=== PATIENT | female | born 1980 ===

== ENCOUNTER 2020-11-03 09:22 | Outpatient (REF) | payer BC, SELFPAY ==
[2020-11-03 11:25] LABS: MANUAL DIFF FLAG NO
[2020-11-03 11:54] LABS: Basophils Percent Auto 0.3 % (0-2); Eosinophils Absolute Auto 0.1 X10*3/uL (0.0-0.4); Eosinophils Percent Auto 1.1 % (0-4); Hematocrit 39.2 % (37-47); Hemoglobin 13.4 g/dl (12.0-16.0); Imm Gran Abs Auto 0.03 X10*3/uL (0.00-0.03); Imm Gran Pct Auto 0.4 % (0.0-0.4); Lymphocytes Absolute Auto 1.7 X10*3/uL (1.2-4.9); Lymphocytes Percent Auto 23.8 % (20-40); Mean Corpuscular HGB Conc 34.2 g/dl (31.0-35.0); Mean Corpuscular Hemoglobin 31.6 pg (27.0-33.0); Mean Corpuscular Volume 92.5 fL (80-98); Mean Platelet Volume 9.9 fL (9.4-12.3); Monocytes Absolute Auto 0.6 X10*3/uL (0.1-1.2); Monocytes Percent Auto 8.9 % (2-11); Neutrophils Absolute Auto 4.7 X10*3/uL (2.0-8.3); Neutrophils Percent Auto 65.5 % (45-73); Platelet Count 449 X10*3/uL (160-400); Red Blood Count 4.24 X10*6/uL (4.20-5.50); Red Cell Distribution Width 12.1 % (11.0-16.0); White Blood Count 7.2 X10*3/uL (4.8-10.8)
[2020-11-03 12:27] LABS: Thyroid Stimulating Hormone 1.41 uIU/mL (0.32-4.0); Vitamin D 25-OH Total 34.3 ng/mL (>30)
[2020-11-03 12:36] LABS: Alanine Aminotransferase 33 U/L (0-31); Albumin Level 4.7 g/dL (3.5-5.0); Alkaline Phosphatase 88 U/L (39-117); Anion Gap 20 (12-20); Aspartate Amino Transferase 27 U/L (5-31); Bilirubin Total 0.5 mg/dL (0.0-1.0); Blood Urea Nitrogen 11 mg/dL (9-16); Calcium 9.3 mg/dL (8.4-10.2); Carbon Dioxide 25 mmol/L (22-29); Chloride 97 mmol/L (96-108); Cholesterol 162 mg/dL; Estimated Glomerular Filt Rate > 60; Glucose Fasting 104 mg/dL (60-99); HDL Cholesterol 45 mg/dL; LDL Cholesterol Calculated 93 mg/dl; Potassium 3.6 mmol/l (3.3-5.1); Sodium 138 mmol/L (135-145); Total Protein 8.2 g/dL (6.5-8.0); Triglycerides 123 mg/dL
== END 2020-11-03 09:23 | disposition home or self-care (01) ==
LOC: HO.HMGCLDS 09:22
PROVIDERS: PCP Internal Medicine; Visit Provider Internal Medicine
DX: E55.9 Vitamin D deficiency, unspecified (principal); E78.00 Pure hypercholesterolemia, unspecified
CPT/HCPCS: 36415; 80053; 80061; 82306; 84443; 85025

== ENCOUNTER 2021-04-04 07:42 | Outpatient (REF) | payer BC, SELFPAY ==
[2021-04-04 11:24] LABS: MANUAL DIFF FLAG NO
[2021-04-04 11:32] LABS: Basophils Percent Auto 0.4 % (0-2); Eosinophils Absolute Auto 0.1 X10*3/uL (0.0-0.4); Eosinophils Percent Auto 1.5 % (0-4); Hematocrit 37.8 % (37-47); Hemoglobin 12.3 g/dl (12.0-16.0); Imm Gran Abs Auto 0.02 X10*3/uL (0.00-0.03); Imm Gran Pct Auto 0.3 % (0.0-0.4); Lymphocytes Absolute Auto 1.6 X10*3/uL (1.2-4.9); Lymphocytes Percent Auto 21.8 % (20-40); Mean Corpuscular HGB Conc 32.5 g/dl (31.0-35.0); Mean Corpuscular Hemoglobin 31.4 pg (27.0-33.0); Mean Corpuscular Volume 96.4 fL (80-98); Mean Platelet Volume 9.6 fL (9.4-12.3); Monocytes Absolute Auto 0.6 X10*3/uL (0.1-1.2); Monocytes Percent Auto 7.7 % (2-11); Neutrophils Absolute Auto 5.2 X10*3/uL (2.0-8.3); Neutrophils Percent Auto 68.3 % (45-73); Platelet Count 415 X10*3/uL (160-400); Red Blood Count 3.92 X10*6/uL (4.20-5.50); Red Cell Distribution Width 12.9 % (11.0-16.0); White Blood Count 7.5 X10*3/uL (4.8-10.8)
[2021-04-04 11:56] LABS: Alanine Aminotransferase 16 U/L (0-31); Albumin Level 4.4 g/dL (3.5-5.0); Alkaline Phosphatase 83 U/L (39-117); Anion Gap 13 (12-20); Aspartate Amino Transferase 15 U/L (5-31); Bilirubin Total 0.5 mg/dL (0.0-1.0); Blood Urea Nitrogen 14 mg/dL (9-16); Calcium 9.2 mg/dL (8.4-10.2); Carbon Dioxide 28 mmol/L (22-29); Chloride 102 mmol/L (96-108); Cholesterol 203 mg/dL; Estimated Glomerular Filt Rate > 60; Glucose Fasting 111 mg/dL (60-99); HDL Cholesterol 49 mg/dL; LDL Cholesterol Calculated 119 mg/dl; Potassium 4.5 mmol/L (3.3-5.1); Sodium 138 mmol/L (135-145); Total Protein 7.6 g/dL (6.5-8.0); Triglycerides 175 mg/dL
[2021-04-04 12:20] LABS: Thyroid Stimulating Hormone 2.37 uIU/mL (0.32-4.0); Vitamin D 25-OH Total 33.2 ng/mL (>30)
== END 2021-04-04 07:43 | disposition home or self-care (01) ==
LOC: HO.HMGCLDS 07:42
PROVIDERS: PCP Internal Medicine; Visit Provider Internal Medicine
DX: F41.9 Anxiety disorder, unspecified (principal); I87.2 Venous insufficiency (chronic) (peripheral); E55.9 Vitamin D deficiency, unspecified; E78.00 Pure hypercholesterolemia, unspecified; E66.01 Morbid (severe) obesity due to excess calories
CPT/HCPCS: 36415; 80053; 80061; 82306; 84443; 85025

== ENCOUNTER 2022-02-05 07:54 | Outpatient (REF) | payer BC, SELFPAY ==
[2022-02-05 11:21] LABS: MANUAL DIFF FLAG NO
[2022-02-05 11:51] LABS: Basophils Percent Auto 0.5 % (0-2); Eosinophils Absolute Auto 0.2 X10*3/uL (0.0-0.4); Eosinophils Percent Auto 2.4 % (0-4); Hemoglobin 12.1 g/dl (12.0-16.0); Imm Gran Abs Auto 0.03 X10*3/uL (0.00-0.03); Imm Gran Pct Auto 0.3 % (0.0-0.4); Lymphocytes Absolute Auto 1.5 X10*3/uL (1.2-4.9); Lymphocytes Percent Auto 16.5 % (20-40); Mean Corpuscular HGB Conc 32.7 g/dl (31.0-35.0); Mean Corpuscular Hemoglobin 31.2 pg (27.0-33.0); Mean Corpuscular Volume 95.4 fL (80.0-98.0); Monocytes Absolute Auto 0.7 X10*3/uL (0.1-1.2); Monocytes Percent Auto 7.6 % (2-11); Neutrophils Absolute Auto 6.4 x10*3/uL (2.0-8.3); Neutrophils Percent Auto 72.7 % (45-73); Platelet Count 424 X10*3/uL (160-400); Red Blood Count 3.88 X10*6/uL (4.20-5.50); Red Cell Distribution Width 12.9 % (11.0-16.0); White Blood Count 8.8 X10*3/uL (4.8-10.8)
[2022-02-05 11:58] LABS: Alanine Aminotransferase 28 U/L (0-31); Alkaline Phosphatase 69 U/L (39-117); Anion Gap 15 (12-20); Aspartate Amino Transferase 23 U/L (5-31); Bilirubin Total 0.5 mg/dL (0.0-1.0); Blood Urea Nitrogen 11 mg/dL (9-16); Calcium 9.5 mg/dL (8.4-10.2); Carbon Dioxide 28 mmol/L (22-29); Chloride 99 mmol/L (96-108); Cholesterol 189 mg/dL; Estimated Glomerular Filt Rate > 60; Glucose Fasting 132 mg/dL (60-99); HDL Cholesterol 40 mg/dL; LDL Cholesterol Calculated 119 mg/dl; Potassium 3.8 mmol/L (3.3-5.1); Sodium 138 mmol/L (135-145); Total Protein 7.3 g/dL (6.5-8.0); Triglycerides 154 mg/dL
[2022-02-05 12:20] LABS: Thyroid Stimulating Hormone 2.48 uIU/mL (0.32-4.0); Vitamin D 25-OH Total 31.8 ng/mL (>30)
== END 2022-02-05 07:55 | disposition home or self-care (01) ==
LOC: HO.HMGCLDS 07:54
PROVIDERS: Visit Provider Internal Medicine
DX: Z00.00 Encounter for general adult medical examination without abnormal findings (principal); E78.00 Pure hypercholesterolemia, unspecified; E55.9 Vitamin D deficiency, unspecified
CPT/HCPCS: 36415; 80053; 80061; 82306; 84443; 85025

== ENCOUNTER → 2022-03-25 10:23 | Outpatient (BNVA) | payer BC, SELFPAY | PROVIDERS: PCP Internal Medicine; Visit Provider Internal Medicine | DX: G47.33 Obstructive sleep apnea (adult) (pediatric) (principal) ==

== ENCOUNTER 2022-04-03 07:49 | Outpatient (REF) | payer BC, SELFPAY ==
[2022-04-03 11:17] LABS: Estimated Average Glucose 123 mg/dL; Hemoglobin A1c % 5.9 %
== END 2022-04-03 07:50 | disposition home or self-care (01) ==
LOC: HO.HMGCLDS 07:49
PROVIDERS: Visit Provider Internal Medicine
DX: Z00.00 Encounter for general adult medical examination without abnormal findings (principal); E66.01 Morbid (severe) obesity due to excess calories
CPT/HCPCS: 36415; 83036

== ENCOUNTER → 2022-04-16 14:57 | Outpatient (REF) | payer BC, SELFPAY | LOC: HO.SL 14:57 | PROVIDERS: PCP Internal Medicine; Visit Provider Internal Medicine | DX: G47.33 Obstructive sleep apnea (adult) (pediatric) (principal); E66.01 Morbid (severe) obesity due to excess calories; R06.83 Snoring; R40.0 Somnolence | CPT/HCPCS: 95806 ==

== ENCOUNTER → 2022-05-20 10:26 | Outpatient (BNVA) | payer OTHER, SELFPAY | PROVIDERS: PCP Internal Medicine; Visit Provider Internal Medicine | DX: G47.33 Obstructive sleep apnea (adult) (pediatric) (principal); E66.01 Morbid (severe) obesity due to excess calories; Z68.42 Body mass index [BMI] 45.0-49.9, adult | CPT/HCPCS: 99212 ==

== ENCOUNTER → 2023-03-26 13:37 | Outpatient (BNVA) | payer OTHER, SELFPAY | PROVIDERS: PCP Internal Medicine; Visit Provider Internal Medicine ==

== ENCOUNTER 2023-04-16 10:06 | Outpatient (AMB) | payer OTHER, SELFPAY ==
--- NOTE | 2023-04-16 10:15 | MHC.PC.OV ---
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 Intake Note: Pt is here today as a New Patient to [facility] care/ sleep apnea Allergies No Known Allergies Allergy (Verified 07/14/23 23:09) Medication List - Last Reconciled 07/14/23 by Shauna Murphy MD atorvastatin 10 mg PO DAILY betamethasone, augmented 0.05 % 1 appl topical DAILY calcium cit mal-vit D2-mag ox 200-200-25 mg-unit-mg tabs PO cholecalciferol (vitamin D3) 50 mcg PO DAILY hydrochlorothiazide 50 mg PO DAILY multivitamin 1 tab PO DAILY sertraline 50 mg PO DAILY Tobacco use date assessed: 04/16/23 Dental Screening Dental Screen Date: 04/16/23 Did you have a dental visit in the last 12 months?: Yes Did you have a dental problem in the last 6 months where you did not have access to dental care?: No Was dental information given to patient?: Patient has dentist HPI DRUG SAFETY ASSOCIATE/ Sleep apena/meds HPI Details 43-year-old lady, new to practice, here to establish care with a new PCP. She has history of obstructive sleep apnea. She has hypertension with blood pressure currently controlled on hydrochlorothiazide. Takes atorvastatin for dyslipidemia. Sees Dr. Murphy for her scalp psoriasis and diagnosed to have granuloma annulare Followed by Dr. Kothari for her obstructive sleep apnea, compliant with CPAP Currently on sertraline for her generalized anxiety disorder, which has been helping. [facility] Medical History (Updated 07/14/23 @ 23:13 by Shauna Murphy MD) Colon cancer screening Morbid obesity Gestational diabetes Granuloma annulare Scalp psoriasis Rosacea History of vitamin D deficiency Generalized anxiety disorder Hypercholesterolemia Obstructive sleep apnea YOHAN (obstructive sleep apnea) Somnolence, daytime Snoring Morbid obesity Surgical History Previous section Family History Sister Substance use disorder Bipolar disorder Father Alcoholism Bipolar disorder Mother Mental health disorder Hodgkins lymphoma Alcoholism Sister No problems noted. Maternal Grandmother CAD (coronary artery disease) Social History Housing: House Patient Tobacco Use Status: Former Tobacco user e-Cigarette/Vaping Use: Never Used service: No Current occupational status: employed Cognitive needs: No Hearing needs: No Vision needs: Yes Female Reproductive History Menstrual Date of Mammogram: 02/12/23 Other: She sees [facility] and [facility] for her routine Pap and pelvic exam and orders her screening mammogram Questionnaire PHQ-9 Over the last 2 weeks, how often have you been bothered by any of the following problems? 1. Little interest or pleasure in doing things: not at all 2. Feeling down, depressed, or hopeless: not at all 3. Trouble falling or staying asleep, or sleeping too much: not at all 4. Feeling tired or having little energy: not at all 5. Poor appetite or overeating: not at all 6. Feeling bad about yourself - or that you are a failure or have let yourself or your family down: not at all 7. Trouble concentrating on things, such as reading the newspaper or watching television: not at all 8. Moving or speaking so slowly that other people could have noticed. Or the opposite - being so fidgety or restless that you have been moving around a lot more than usual: not at all 9. Thoughts that you would be better off or of hurting yourself in some way: not at all Total score: 0 Depression Screening Interpretation: Negative 71786 - PHQ-9 Billing: Yes Source: Developed by Drs. Pj Moreno, Samantha Morris, Deon Fulton and colleagues, with an educational indira from [employer]. Thrive Questionnaire Date Thrive assessed: 04/16/23 I am a: Patient What is your living situation today?: I have a steady place to live Within the past 12 months, did the food you bought not last and you didn't have the money to get more?: Never true Within the past 12 months, did you worry whether your food would run out before you got money to buy more?: Never true Do you have trouble paying for medicines?: No Do you have trouble getting transportation to medical appointments?: No Do you have trouble paying your heating and electricity bill?: No Do you have trouble taking care of your child, family member or friend?: No Do you have trouble with day-to-day activities such as bathing, preparing meals, shopping, managing finances, etc.?: No Are you currently unemployed and looking for a job?: No Are you interested in more education?: Yes AUDIT C Alcohol Use Questionnaire (AUDIT-C) 1. How often do you have a drink containing alcohol?: Monthly or less 2. How many drinks containing alcohol do you have on a typical day when you are drinking?: 1 or 2 3. How often do you have six or more drinks on one occasion?: Never Total Score: 1 SUSAN-7 AMB Questionnaire SUSAN-7 Date SUSAN - 7 assessed: 04/16/23 Feeling nervous, anxious, or on edge: 1 = Several days Not being able to stop or control worryin = Not at all Worrying too much about different things: 1 = Several days Trouble relaxin = Several days Being so restless that it is hard to sit still: 0 = Not at all Becoming easily annoyed or irritable: 1 = Several days Feeling afraid as if something awful might happen: 0 = Not at all Total SUSAN-7 score (0-4 normal; 5-9 mild; 10-14 moderate; 15-21 severe): 4 Source: Developed by Drs. Pj Moreno, Samantha Morris, Deon Fulton and colleagues, with an educational indira from [employer]. SUSAN-7 Assessment Billing SUSAN-7 Assessment Tool: SUSAN-7 Assessment 33252 Review of Systems Const Denies body aches, Denies fatigue, Denies fever(s), Denies headache(s), Denies weakness and Reports weight loss (Lost approximately 40 lb since starting CPAP per patient) Eyes Details: goes to [facility] for routine eye exam Denies change in vision, Denies eye discharge and Denies itchy eyes ENT Denies dizziness, Denies headache(s), Denies nasal congestion, Denies nasal discharge and Denies sore throat Card Denies chest pain, Denies lightheadedness, Denies palpitations and Denies dyspnea Resp Denies chest congestion, Denies cough, Denies dyspnea and Denies wheezing GI Denies abdominal pain, Denies change in bowel habits and Denies heartburn Denies hematuria, Denies urinary frequency, Denies dysuria and Denies urinary urgency Musc Reports no additional complaints Skin/Breast Denies breast pain, Denies breast mass, Denies lesions and Denies rash Neuro Denies dizziness, Denies headache(s) and Denies weakness Psych Details: Stable and controlled on sertraline Endo Denies fatigue, Denies polydipsia, Denies polyuria and Denies palpitations Oscar/Lymph Denies easy bruising Aller/Immun Denies itchy eyes, Denies seasonal rhinorrhea and Denies wheezing Physical exam (Primary Care) Vital Signs: Last Vital Signs Pulse 60 04/16/23 10:17 BP 102/64 04/16/23 10:17 Pulse Ox 95 04/16/23 10:17 Oxygen Delivery Method Room Air 04/16/23 10:17 BMI result Body Mass Index 43.5 BMI Assessment/Plan discussion: High BMI High, discussed plan: lifestyle, weight reduction, dietary and physical activity Tobacco/Smoking Status: Tobacco use Status Tobacco use date assessed 04/16/23 04/16/23 10:24 Patient Tobacco Use Status Former Tobacco user 04/16/23 10:24 e-Cigarette/Vaping Use Never Used 04/16/23 10:24 PHQ-9: PHQ-9 Score PHQ-9: Total score 0 04/17/23 02:56 Depression Screening Interpretation: Negative Thrive Assessment: Date of Thrive Assessment Date Thrive assessed 04/16/23 04/16/23 11:23 Const General: no acute distress and alert Orientation/consciousness: patient oriented x3 HENMT Head: Yes normocephalic and Yes atraumatic Ears: external ears normal, TM's normal bilaterally and EAC's normal General nose exam: Normal external nose present Face and sinus: Yes face symmetric Mouth: Normal oral and palatal mucosa present, oropharynx normal and moist mucous membranes Eyes General: appearance normal, both eyes and all related structures Conjunctivae: conjunctivae normal Sclerae: sclerae normal Pupils: Equal, round and reactive pupils present Neck Neck: Yes full ROM, Yes no lymphadenopathy and Yes supple Thyroid: Thyroid normal Resp Effort & Inspection: normal respiratory effort and able to speak in complete sentences Auscultation: clear to auscultation bilaterally Cardio Rate: regular rate Rhythm: regular rhythm Heart sounds: S1 normal heart sound present and S2 normal heart sound present GI Inspection: Yes Abdominal panniculus present, Yes obesity and Yes other (Palpable mass nontender on midline ) Palpation (GI): Soft to palpation, nontender, no guarding and Hernia present (? Umbilical hernia present) Auscultation: normal bowel sounds General: Yes no CVA tenderness Back/Spine/Pelvis Back: no CVA tenderness and No back tenderness Skin General skin exam: no rashes or lesions noted Neuro General: patient oriented x3, gait normal, moves all extremities, Normal light touch and pain sensation, no focal motor deficits and CN's II-XI intact bilaterally Cranial nerves: Yes Equal, round and reactive pupils present Cognition (Neuro): normal cognition Gait exam (Neuro): Normal gait present Motor exam (neuro): 5/5 motor strength present throughout Extrem General: Yes normal to inspection, Yes full ROM, Yes no joint enlargement, Yes no pedal edema and Yes normal gait Psych Appearance: grossly normal and well kempt Mental Status: mental status grossly normal Speech and movement: Normal speech and movement present Affect: normal affect Attitude: cooperative Thought process: Normal thought process present Thought content: Normal thought content present Insight: Good insight present (Psych) Judgement: Good judgement present (Psych) Assessment and Plan Assessment & Plan (1) Colon cancer screening: Code(s): Z12.11 - Encounter for screening for malignant neoplasm of colon Plan: Referred to GI Clinic for her screening colonoscopy (2) Abdominal wall mass: Code(s): R22.2 - Localized swelling, mass and lump, trunk Plan: Ordered abdominal ultrasound . (3) Morbid obesity: Code(s): E66.01 - Morbid (severe) obesity due to excess calories Plan: Discussed need to increase activity and weight loss. Recommended focusing on improving your health instead of dieting. : Eat Mediterranean diet, limit foods high in fat, sugar, and calories, eat slowly, pay attention to portion sizes, plan your meals ahead of time, start regular physical activity 150 minutes of moderate intensity exercise or 90 minutes/week of vigorous exercise and increase water intake. Continue using CPAP (4) Generalized anxiety disorder: Code(s): F41.1 - Generalized anxiety disorder Plan: Stable controlled on sertraline 100 mg daily, has had therapy in the past, does not need to see one anymore, per patient. Patient states she is well-versed on ways to to relieve stress including : exercise or a massage, getting enough rest, Avoid alcohol, caffeine, nicotine, and illegal drugs which can increase your anxiety level and cause sleep problems. (5) Granuloma annulare: Comment: Seen by Dr. Murphy Code(s): L92.0 - Granuloma annulare Plan: Seen by Dr. Murphy (6) Obstructive sleep apnea: Comment: Sees Dr. Kothari Code(s): G47.33 - Obstructive sleep apnea (adult) (pediatric) Plan: Continue with using CPAP, followed by Dr. Kothari (7) Hypercholesterolemia: Code(s): E78.00 - Pure hypercholesterolemia, unspecified Plan: Requested copies of medical records and last labs from previous PCP, currently taking atorvastatin 10 mg daily. Reinforced importance of following a low-cholesterol diet and getting regular exercise Orders: Orders US abdomen complete 04/16/23 R22.2 - Localized swelling, mass and lump, trunk Referrals Gastroenterology Referral Z12.11 - Encounter for screening for malignant neoplasm of colon Coding Level of Care Code New Pt Level 4 (02932) Diagnoses Colon cancer screening Z12.11 Abdominal wall mass R22.2 Morbid obesity E66.01 Generalized anxiety disorder F41.1 Granuloma annulare L92.0 Obstructive sleep apnea G47.33 Hypercholesterolemia E78.00 Additional Codes SUSAN-7 Assessment Billing - SUSAN-7 Assessment Tool: SUSAN-7 Assessment 14002 ([id number])
[2023-04-16 10:17] VITALS: BP 102/64; PULSE 60; O2SAT 95; BMI 43.5
== END 2023-04-16 11:41 | disposition home or self-care (01) ==
LOC: HO.HMGC 10:06
PROVIDERS: PCP Internal Medicine; Visit Provider Internal Medicine
DX: E78.00 Pure hypercholesterolemia, unspecified (principal); E66.01 Morbid (severe) obesity due to excess calories; Z68.41 Body mass index [BMI] 40.0-44.9, adult; F41.1 Generalized anxiety disorder; L92.0 Granuloma annulare; G47.33 Obstructive sleep apnea (adult) (pediatric); R22.2 Localized swelling, mass and lump, trunk
CPT/HCPCS: 99204

== ENCOUNTER 2023-05-07 13:02 | Outpatient (REF) | payer OTHER, SELFPAY ==
--- NOTE | ~2023-05-07 | US_ITS ---
EXAMINATION: US umbilical region, LIMITED/FOLLOW UP CLINICAL INFORMATION: Umbilical hernia without obstruction or gangrene COMPARISON: None available. TECHNIQUE: Ultrasound of umbilical area FINDINGS: Real-time ultrasound over the palpable area indicated by the patient in the paraumbilical region demonstrates a hernia with 3.6 cm neck. US/US pelvic limited IMPRESSION: Umbilical hernia is demonstrated with 3.6 cm neck.
== END 2023-05-07 13:03 | disposition home or self-care (01) ==
LOC: HO.HMGCX 13:02
PROVIDERS: PCP Internal Medicine; Visit Provider Internal Medicine
DX: K42.9 Umbilical hernia without obstruction or gangrene (principal)
CPT/HCPCS: 76857

== ENCOUNTER 2023-05-21 15:30 | Outpatient (AMB) | payer OTHER, SELFPAY ==
--- NOTE | 2023-05-21 15:33 | A.OFFVIS_ITS ---
Intake Vital Signs 05/21/23 15:34 Height 5 ft 2 in Weight 242 lb BMI 44.3 BP 106/52 L Blood Pressure Location Rt brachial Position Sitting Pulse 66 Intake Visit Reasons: umbilical hernia Intake Note: This patient presents for an assessment for umbilical hernia. Patient c/o; bulge, denies pain or discomfort, umbilical region. 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 Accompanied by: Other Relationship Allergies No Known Allergies Allergy (Verified 05/21/23 15:39) Medication List - Last Reconciled 05/21/23 by Berhane Huntley MD atorvastatin 10 mg PO DAILY atorvastatin 10 mg PO BEDTIME betamethasone, augmented 0.05 % 1 appl topical DAILY calcium cit mal-vit D2-mag ox 200-200-25 mg-unit-mg tabs PO calcium citrate 250 mg PO DAILY cholecalciferol (vitamin D3) 50 mcg PO DAILY cholecalciferol (vitamin D3) 50 mcg PO DAILY hydrochlorothiazide 50 mg PO DAILY hydrochlorothiazide 50 mg PO DAILY multivitamin 1 tab PO DAILY multivitamin (Daily Multi-Vitamin tablet) 1 tab PO DAILY sertraline 50 mg PO DAILY sertraline 50 mg PO DAILY HPI umbilical hernia HPI Details [age] year old female referred for an umbilical hernia. She has had this not mass on her umbilicus for over 14 years. She says that seems to be increasing in size. She describes discomfort with this. She denies any GI complaints. She also has morbid obesity and obstructive sleep apnea. She does state that she feels that her obesity is related to her hernia symptoms. She says that she started wearing a CPAP for YOHAN, she has lost some weight already. [facility] Medical History Morbid obesity YOHAN (obstructive sleep apnea) Snoring Somnolence, daytime Surgical History Previous section Family History Sister Substance use disorder Bipolar disorder Father Alcoholism Bipolar disorder Mother Mental health disorder Hodgkins lymphoma Alcoholism Sister No problems noted. Maternal Grandmother CAD (coronary artery disease) Social History Housing: House Patient Tobacco Use Status: Former Tobacco user e-Cigarette/Vaping Use: Never Used service: No Current occupational status: employed Cognitive needs: No Hearing needs: No Vision needs: Yes Review of Systems Const Denies chills and Denies fever(s) Card Denies chest pain, Denies dyspnea and Denies dyspnea on exertion Resp Details: Has sleep apnea, wears CPAP at night Denies cough, Denies dyspnea and Denies dyspnea on exertion GI Denies hematochezia and Denies change in bowel habits Denies hematuria Musc Denies back pain and Denies limited range of motion Neuro Denies focal weakness and Denies convulsions Psych Denies depression and Denies mood swings Physical Exam Vital Signs: Last Vital Signs Pulse 66 05/21/23 15:34 BP 106/52 L 05/21/23 15:34 BMI result Body Mass Index 44.3 Const Other: Morbidly obese General: comfortable and no acute distress Orientation/consciousness: patient oriented x3 Neck Neck: Yes no lymphadenopathy Resp Auscultation: clear to auscultation bilaterally Cardio Rhythm: regular rhythm GI Other: Umbilical hernia, mostly on the lower part of the umbilicus, vague margins and not well-defined, probably about 4 cm in size, but she does have a large pannus Palpation (GI): Soft to palpation, nontender and no guarding Neuro General: patient oriented x3 Assessment & Plan Assessment & Plan (1) Umbilical hernia: Code(s): K42.9 - Umbilical hernia without obstruction or gangrene Plan: I explained to the technique of repair of this umbilical hernia possible mesh. I reviewed the risks including but not limited to bleeding, infections, bowel injury, as well as benefits and alternatives. She has given consent. I also explained to her what expect postoperatively. She however had stated that she is interested in seeing weight before proceeding with any surgical intervention. She is interested in touching base with our weight management program. I will set her up for this I have ordered for a CT scan to further define her hernia and help planning for approach for eventual repair. She says she understands the plan well. I will talk to her after her CT scan. (2) Morbid obesity: Code(s): E66.01 - Morbid (severe) obesity due to excess calories Plan: She states that she wants to lose some weight prior to undergoing surgery for her hernia. She is interested in a weight loss program so I am going to assist her with this. Orders: Orders CT abdomen pelvis wo IV con 05/21/23 K42.9 - Umbilical hernia without obstruction or gangrene Coding Level of Care Code New Pt Level 3 (14057) Diagnoses Umbilical hernia K42.9 Morbid obesity E66.01
[2023-05-21 15:34] VITALS: BP 106/52; PULSE 66; BMI 44.3
== END 2023-05-21 16:02 | disposition home or self-care (01) ==
PROVIDERS: PCP Internal Medicine; Visit Provider Surgery
DX: K42.9 Umbilical hernia without obstruction or gangrene (principal); E66.01 Morbid (severe) obesity due to excess calories
CPT/HCPCS: 99203

== ENCOUNTER → 2023-05-21 15:30 | Outpatient (BNVA) | payer OTHER, SELFPAY | PROVIDERS: PCP Internal Medicine; Visit Provider Surgery ==

== ENCOUNTER 2023-06-19 10:59 | Outpatient (REF) | payer OTHER, SELFPAY ==
--- NOTE | ~2023-06-19 | CT_ITS ---
EXAMINATION: CT ABDOMEN AND PELVIS WITHOUT CONTRAST CLINICAL INFORMATION: Umbilical hernia without obstruction or gangrene COMPARISON: Correlation is made with ultrasound dated 05/07/2023. TECHNIQUE: Multidetector volumetric imaging was performed from the superior aspect of the liver through the pubic symphysis. Sagittal and coronal reformatted images were obtained on the technologist's workstation. This CT examination was performed using dose optimization techniques as appropriate, variously including the following: *Automated exposure control *Adjustment of mA and/or kV according to patient size (this includes techniques or standardized protocols for targeted exams where dose is matched to indication/reason for exam; i.e. extremities or head) *Use of iterative reconstruction technique DLP: 712 mGy-cm FINDINGS: LUNG BASES: The visualized lung bases are unremarkable. LIVER, GALLBLADDER, AND BILIARY TREE: The liver is appears mildly enlarged. The liver is homogeneous without focal lesion.. No biliary ductal dilatation is present. The gallbladder is unremarkable with no evidence of radiopaque gallstones, gallbladder wall thickening, or obvious pericholecystic inflammatory changes. PANCREAS: Unremarkable. SPLEEN: Unremarkable. ADRENAL GLANDS: Unremarkable. KIDNEYS AND URETERS: The kidneys are normal in size, shape, and attenuation. No hydronephrosis, hydroureter, or calculi seen. No perinephric stranding. BLADDER: Unremarkable. GASTROINTESTINAL TRACT: The small and large bowel are unremarkable. The appendix is nonvisualized.. ABDOMINAL WALL: There is a fat-containing umbilical hernia extending inferior to the umbilicus. The abdominal wall defect measures 3.5 x 1.9 cm. The hernia sac measures 7.9 x 6.2 x 5.5 cm. There is no bowel in the hernia. No significant inflammatory change is seen. LYMPH NODES: Normal. VASCULAR: Unremarkable. PELVIC VISCERA: Unremarkable. OSSEOUS STRUCTURES: Unremarkable. CT/CT abdomen pelvis wo IV con IMPRESSION: There is a large fat-containing umbilical hernia as described, without associated inflammatory change. The liver is mildly enlarged, without evidence of focal lesion. Fleischner guidelines were followed.
== END 2023-06-19 11:00 | disposition home or self-care (01) ==
LOC: HO.CT 10:59
PROVIDERS: PCP Internal Medicine; Visit Provider Surgery
DX: K42.9 Umbilical hernia without obstruction or gangrene (principal)
CPT/HCPCS: 74176

== ENCOUNTER 2023-06-26 10:48 | Outpatient (AMB) | payer OTHER, SELFPAY ==
--- NOTE | 2023-06-26 11:01 | MHC.OFFVIS ---
Intake Vital Signs 06/26/23 11:08 Height 5 ft 2 in Weight 227 lb 4 oz BMI 41.6 BP 110/59 L Blood Pressure Location Rt brachial Position Sitting Pulse 58 Intake Visit Reasons: Ct-Scan follow-up Intake Note: This patient presents for a Ct-Scan follow-up. Patient c/o; reports no changes. [employer] Professional Required: No Accompanied by: Other Relationship Allergies No Known Allergies Allergy (Verified 06/26/23 11:07) HPI Ct-Scan follow-up HPI Details [age] year old female here for follow-up for her umbilical hernia. She has had this mass on her umbilicus for over 14 years. She says that seems to be increasing in size. She describes discomfort with this. She denies any GI complaints. She also has morbid obesity and obstructive sleep apnea. She does state that she feels that her obesity is related to her hernia symptoms. She says that she started wearing a CPAP for YOHAN, she has lost some weight already since September, as she has been on a weight watchers diet. I had sent her for CT scan and she is here to discuss the results as well. [facility] Medical History Morbid obesity YOHAN (obstructive sleep apnea) Snoring Somnolence, daytime Surgical History Previous section Family History Sister Substance use disorder Bipolar disorder Father Alcoholism Bipolar disorder Mother Mental health disorder Hodgkins lymphoma Alcoholism Sister No problems noted. Maternal Grandmother CAD (coronary artery disease) Social History Housing: House Patient Tobacco Use Status: Former Tobacco user e-Cigarette/Vaping Use: Never Used service: No Current occupational status: employed Cognitive needs: No Hearing needs: No Vision needs: Yes Review of Systems Const Denies chills and Denies fever(s) Card Denies chest pain, Denies dyspnea and Denies dyspnea on exertion Resp Denies cough, Denies dyspnea and Denies dyspnea on exertion GI Denies hematochezia and Denies change in bowel habits Denies hematuria Musc Denies back pain and Denies limited range of motion Neuro Denies focal weakness and Denies convulsions Psych Denies depression and Denies mood swings Physical Exam Vital Signs: Last Vital Signs Pulse 58 06/26/23 11:08 BP 110/59 L 06/26/23 11:08 BMI result Body Mass Index 41.6 Const Other: Obese General: comfortable and no acute distress Orientation/consciousness: patient oriented x3 Neck Neck: Yes no lymphadenopathy Resp Auscultation: clear to auscultation bilaterally Cardio Rhythm: regular rhythm GI Other: Umbilical hernia, palpable, about 5 cm, only partially reducible, nontender Palpation (GI): Soft to palpation, nontender and no guarding Neuro General: patient oriented x3 Assessment & Plan Assessment & Plan (1) Umbilical hernia: Code(s): K42.9 - Umbilical hernia without obstruction or gangrene Plan: I have reviewed her CAT scan and the fascial defect on the umbilicus about 4.4 cm. The hernia is fat containing. I had a long discussion with her again about the technique of umbilical hernia repair with mesh. I reviewed with her the risks including but not limited to bleeding, infections, here to bowel, recurrence, postop pain, as well as the benefits and alternatives I explained to her what to expect postoperatively She wants to proceed. She says that she is going to schedule for the surgery as she has had lost significant weight already and feels that she is ready for this. Coding Level of Care Code Est Pt Level 3 (70946) Diagnoses Umbilical hernia K42.9
[2023-06-26 11:08] VITALS: BP 110/59; PULSE 58; BMI 41.6
== END 2023-06-26 11:26 | disposition home or self-care (01) ==
PROVIDERS: PCP Internal Medicine; Visit Provider Surgery
DX: K42.9 Umbilical hernia without obstruction or gangrene (principal)
CPT/HCPCS: 99213

== ENCOUNTER → 2023-06-26 10:48 | Outpatient (BNVA) | payer OTHER, SELFPAY | PROVIDERS: PCP Internal Medicine; Visit Provider Surgery ==

== ENCOUNTER 2023-07-16 13:07 | Outpatient (AMB) | payer OTHER, SELFPAY ==
--- NOTE | 2023-07-16 13:07 | A.OFFVIS_ITS ---
Intake Vital Signs 07/16/23 13:08 Height 5 ft 2 in Weight 227 lb 1.218 oz BMI 41.5 BP 109/56 L Blood Pressure Location Lt brachial Position Sitting Pulse 65 Intake Visit Reasons: Colonoscopy Screening Intake Note: Racheal presents in the office as a colonoscopy screening. CC: She states that she is on a healing journey. She has been losing weight. Allergies No Known Allergies Allergy (Verified 07/16/23 13:10) HPI Colonoscopy Screening HPI Details 43 year old? female with past medical hi story of YOHAN, hypercholesteremia, umbilical hernia, anxiety, obesity is here today for pre colonoscopy screening.? Patient was sent to us by her PCP.? This is her first colonoscopy screening.? Patient denies any gastrointestinal symptoms in the past or at present.? Denies any personal or family history of gastrointestinal disease, colon polyps, or cancer.? Denies history of difficulty with sedation or anesthesia in the past.? History of sleep apnea using CPAP every night.? Patient has surgery planned to repair umbilical hernia in July. Denies any history of cardiac, renal, pulmonary, or hepatic disease.?? No history of infectious? diseases like hepatitis A, B, C, HIV or tuberculosis.? Patient is not on any anticoagulation therapy. [facility] Medical History Colon cancer screening Morbid obesity Gestational diabetes Granuloma annulare Scalp psoriasis Rosacea History of vitamin D deficiency Generalized anxiety disorder Hypercholesterolemia Obstructive sleep apnea YOHAN (obstructive sleep apnea) Somnolence, daytime Snoring Morbid obesity Surgical History Previous section Family History Sister Substance use disorder Bipolar disorder Father Alcoholism Bipolar disorder Mother Mental health disorder Hodgkins lymphoma Alcoholism Sister No problems noted. Maternal Grandmother CAD (coronary artery disease) Social History Housing: House Patient Tobacco Use Status: Former Tobacco user e-Cigarette/Vaping Use: Never Used service: No Current occupational status: employed Cognitive needs: No Hearing needs: No Vision needs: Yes Review of Systems Const Denies weight gain and Denies weight loss ENT Reports no additional complaints, Denies dysphagia and Denies odynophagia Card Reports no additional complaints Resp Reports no additional complaints GI Denies abdominal pain, Denies belching, Denies melena, Denies bloating, Denies change in bowel habits, Denies dysphagia, Denies excessive flatus, Denies dyspepsia, Denies heartburn, Denies diarrhea, Denies loose stools, Denies nausea, Denies odynophagia and Denies vomiting Reports no additional complaints Musc Reports no additional complaints Neuro Reports no additional complaints Psych Reports no additional complaints Endo Reports no additional complaints Physical Exam Vital Signs: Last Vital Signs Pulse 65 07/16/23 13:08 BP 109/56 L 07/16/23 13:08 BMI result Body Mass Index 41.5 Const General: healthy appearing, no acute distress and well developed Nutritional Appearance: obese Orientation/consciousness: patient oriented x3 HEENT Head: Yes normal to inspection, Yes normocephalic and Yes atraumatic Face and sinus: Yes normal facial exam Mouth: Normal oral and palatal mucosa present Throat: Yes posterior oropharynx normal, Yes tonsils normal and Yes uvula midline Eyes General: appearance normal, both eyes and all related structures Neck Neck: Yes normal visual inspection, Yes full ROM and Yes trachea midline Thyroid: Thyroid normal Resp Effort & Inspection: normal respiratory effort, able to speak in complete sentences, no tracheal deviation and symmetric chest movement Auscultation: clear to auscultation bilaterally Cardio Rate: regular rate Heart sounds: S1 normal heart sound present and S2 normal heart sound present GI Inspection: No distended and Yes obesity Palpation (GI): Soft to palpation, not firm, nontender and No hepatosplenomegaly present Auscultation: normal bowel sounds General: Yes no CVA tenderness Back/Spine/Pelvis Back: no CVA tenderness Skin General skin exam: elasticity normal, turgor normal and dry skin Neuro General: patient oriented x3 Psych Appearance: grossly normal Mental Status: mental status grossly normal Speech and movement: Normal speech and movement present Assessment & Plan Assessment & Plan (1) Colon cancer screening: Code(s): Z12.11 - Encounter for screening for malignant neoplasm of colon Plan: Patient denies any GI, cardiac or respiratory symptoms.? Denies any issues with anesthesia in the past.? History of CPAP now using CPAP every night. Patient has umbilical hernia repair surgery scheduled for July. Patient reports occasional hemorrhoids. Patient states that she is treating it with coconut oil and tea tree oil.? No history infectious diseases in the past or present.? Not on any anticoagulation therapy.? No family or personal history of colon cancer or polyps.? Patient denies melena, hematochezia, unintentional weight loss or ribbon like stools.? Discussed at length the pre-procedure,? prep, diet & medications as well as what to expect prior, during and after the procedure.?? Stressed the importance of good bowel prep. ?Recommended the use of Vaseline or Calmoseptine OTC & baby wipes with bowel movements to promote comfort.? ?Patient verbalizes understanding and agrees to plan of care.? She was given the opportunity to ask questions and all questions answered.? We will see her after the procedure.? Medications: New bisacodyl (Dulcolax (bisacodyl)) take 2 tabs at noon the day before your colonoscopy 10 mg (2 x 5 mg) PO ONCE 1 day 2 tabs 0RF Z12.11 - Encounter for screening for malignant neoplasm of colon polyethylene glycol 3350 (Miralax) As directed by gastroenterology department at [facility] 238 grams PO ONCE 238 grams 0RF Z12.11 - Encounter for screening for malignant neoplasm of colon Coding Level of Care Code New Pt Level 3 (52109) Diagnoses Colon cancer screening Z12.11 Time Spent (min) 40 Comment 30 minutes spent with patient and additional 10 minute spent reviewing her records
[2023-07-16 13:08] VITALS: BP 109/56; PULSE 65; BMI 41.5
== END 2023-07-16 13:51 | disposition home or self-care (01) ==
PROVIDERS: PCP Internal Medicine; Visit Provider Nurse Practitioner Family
DX: Z01.818 Encounter for other preprocedural examination (principal); Z12.11 Encounter for screening for malignant neoplasm of colon
CPT/HCPCS: S0285

== ENCOUNTER → 2023-07-16 13:07 | Outpatient (BNVA) | payer OTHER, SELFPAY | PROVIDERS: PCP Internal Medicine; Visit Provider Nurse Practitioner Family ==

== ENCOUNTER 2023-07-23 16:01 | Outpatient (AMB) | payer OTHER, SELFPAY ==
--- NOTE | 2023-07-23 16:01 | A.OFFVIS_ITS ---
Intake Intake Visit Reasons: re-discuss surgery Intake Note: This patient presents for an assessment to re-discuss hernia repair surgery. Patient c/o; reports no changes. Survey Field Technician Required: No Accompanied by: Self / Same As Patient Allergies No Known Allergies Allergy (Verified 07/23/23 16:05) Medication List - Last Reconciled 07/24/23 by Berhane Huntley MD atorvastatin 10 mg PO DAILY bisacodyl (Dulcolax (bisacodyl)) 10 mg (2 x 5 mg) PO ONCE 1 day calcium cit mal-vit D2-mag ox 200-200-25 mg-unit-mg tabs PO cholecalciferol (vitamin D3) 50 mcg PO DAILY hydrochlorothiazide 50 mg PO DAILY multivitamin 1 tab PO DAILY polyethylene glycol 3350 (Miralax) 238 grams PO ONCE sertraline 50 mg PO DAILY HPI re-discuss surgery HPI Details She is scheduled for repair of an umbilical hernia with mesh this month. She had called me as she wanted to review the option of proceeding with a laparoscopic repair. She denies any other complaints at this time. [facility] Medical History Colon cancer screening Morbid obesity Gestational diabetes Granuloma annulare Scalp psoriasis Rosacea History of vitamin D deficiency Generalized anxiety disorder Hypercholesterolemia Obstructive sleep apnea YOHAN (obstructive sleep apnea) Somnolence, daytime Snoring Morbid obesity Surgical History Previous section Family History Sister Substance use disorder Bipolar disorder Father Alcoholism Bipolar disorder Mother Mental health disorder Hodgkins lymphoma Alcoholism Sister No problems noted. Maternal Grandmother CAD (coronary artery disease) Social History Housing: House Patient Tobacco Use Status: Former Tobacco user e-Cigarette/Vaping Use: Never Used service: No Current occupational status: employed Cognitive needs: No Hearing needs: No Vision needs: Yes Review of Systems Const Denies chills and Denies fever(s) Card Denies chest pain, Denies dyspnea and Denies dyspnea on exertion Resp Denies cough, Denies dyspnea and Denies dyspnea on exertion GI Denies hematochezia and Denies change in bowel habits Denies hematuria Musc Denies back pain and Denies limited range of motion Neuro Denies focal weakness and Denies convulsions Psych Denies depression and Denies mood swings Physical Exam Const Other: Obese General: comfortable and no acute distress Resp Effort & Inspection: normal respiratory effort Cardio Rate: regular rate GI Other: Palpable hernia on the area of the umbilicus, reducible, nontender Palpation (GI): Soft to palpation, not firm, nontender and no guarding Assessment & Plan Assessment & Plan (1) Umbilical hernia: Code(s): K42.9 - Umbilical hernia without obstruction or gangrene Plan: I explained to her the technique of laparoscopic repair of this umbilical hernia. This will be done with mesh. She has had multiple abdominal surgeries including appendectomy and C-sections. I explained to her that laparoscopic repair with mesh might present with the higher turns rate because we will not be closing the fascia and the integrity of the repair will depend solely on the mesh itself. She understands as well that she may have adhesions surrounding the abdomen because of her previous appendectomy C-sections which will make the procedure a little more difficult. She understands advantage of smaller incisions and less pain with laparoscopic approach. She says she understands this option. She says she is deciding to go ahead with open repair. Coding Level of Care Code Est Pt Level 3 (52588) Diagnoses Umbilical hernia K42.9
== END 2023-07-23 16:29 | disposition home or self-care (01) ==
PROVIDERS: PCP Internal Medicine; Visit Provider Surgery
DX: K42.9 Umbilical hernia without obstruction or gangrene (principal)
CPT/HCPCS: 99213

== ENCOUNTER → 2023-07-23 16:01 | Outpatient (BNVA) | payer OTHER, SELFPAY | PROVIDERS: PCP Internal Medicine; Visit Provider Surgery ==

== ENCOUNTER 2023-08-08 07:31 | Day surgery (SDC) | payer OTHER, SELFPAY ==
[2023-08-06 14:35] VITALS: BMI 43.5
--- NOTE | 2023-08-07 11:17 | HO.ANESPROP2 ---
Documented by User: Anitha Leonard NP 08/07/23 11:18 HPI - Anesthesia Eval Consult details Narrative: 43yo F for Hernia Repair Umbilical with mesh PMFSH Active Problems Active Problems: All Active Problems (Updated 07/14/23 @ 23:13 by Shauna Murphy MD) Umbilical hernia (Acute) Obstructive sleep apnea (Acute) Hypercholesterolemia (Acute) Generalized anxiety disorder (Acute) Granuloma annulare (Acute) Gestational diabetes (Acute) Morbid obesity (Acute) Colon cancer screening (Acute) YOHAN (obstructive sleep apnea) (Acute) Morbid obesity (Acute) Past Medical History Medical History Colon cancer screening Morbid obesity Gestational diabetes Granuloma annulare Scalp psoriasis Rosacea History of vitamin D deficiency Generalized anxiety disorder Hypercholesterolemia Obstructive sleep apnea YOHAN (obstructive sleep apnea) Somnolence, daytime Snoring Morbid obesity Family History Family History Sister Substance use disorder Bipolar disorder Father Alcoholism Bipolar disorder Mother Mental health disorder Hodgkins lymphoma Alcoholism Sister No problems noted. Maternal Grandmother CAD (coronary artery disease) Surgical History Surgical History Previous section Social History Social History Housing: House Patient Tobacco Use Status: Former Tobacco user e-Cigarette/Vaping Use: Never Used Substance Use Frequency: Occasionally Have you been hit, kicked, punched, or otherwise hurt by someone within the past year? If so, by whom?: No Are you DNR?: No Advance Directives: No Advance Directives Information Provided: Yes Recently lost weight without trying: No Eating poorly because of decreased appetite: No Nutrition Risks: No Nutritional Risk Patient : No service: No Current occupational status: employed Cognitive needs: No Hearing needs: No Vision needs: Yes Meds Allergies Allergy/AdvReac Type Severity Reaction Status Date / Time No Known Allergies Allergy Verified 07/23/23 16:05 Home Medications Medication Instructions Recorded Confirmed Last Taken Type calcium citrate mal.-vit tab PO 04/16/23 07/24/23 Unknown History D2-magnesium ox 200 mg-200 unit-25 mg tablet cholecalciferol (vitamin D3) 50 50 mcg PO DAILY 04/16/23 07/24/23 Unknown History mcg (2,000 unit) capsule multivitamin 1 tab PO DAILY 04/16/23 07/24/23 Unknown History hydrochlorothiazide 50 mg tablet 50 mg PO DAILY 07/16/23 07/24/23 Unknown History Exam Exam Date and Time: August 07, 2023 1117 Height,Weight and Vital Signs: Height 5 ft 2 in Weight 107.955 kg Assessment and Plan Assessment Anesthesia Assessment: Chart Reviewed Documented by User: Elina Bae MD 08/08/23 08:44 PMFSH Past Medical History Medical History Colon cancer screening Morbid obesity Gestational diabetes Granuloma annulare Scalp psoriasis Rosacea History of vitamin D deficiency Generalized anxiety disorder Hypercholesterolemia Obstructive sleep apnea YOHAN (obstructive sleep apnea) Somnolence, daytime Snoring Morbid obesity Family History Family History Sister Substance use disorder Bipolar disorder Father Alcoholism Bipolar disorder Mother Mental health disorder Hodgkins lymphoma Alcoholism Sister No problems noted. Maternal Grandmother CAD (coronary artery disease) Family history of problems with anesthesia: No Surgical History Surgical History Previous section History of Problems with Anesthesia: No Social History Social History Housing: House Patient Tobacco Use Status: Former Tobacco user e-Cigarette/Vaping Use: Never Used Substance Use Frequency: Occasionally Have you been hit, kicked, punched, or otherwise hurt by someone within the past year? If so, by whom?: No Are you DNR?: No Advance Directives: No Advance Directives Information Provided: Yes Recently lost weight without trying: No Eating poorly because of decreased appetite: No Nutrition Risks: No Nutritional Risk Patient : No service: No Current occupational status: employed Cognitive needs: No Hearing needs: No Vision needs: Yes Meds Allergies Allergy/AdvReac Type Severity Reaction Status Date / Time No Known Allergies Allergy Verified 07/23/23 16:05 Home Medications Medication Instructions Recorded Confirmed Last Taken Type calcium citrate mal.-vit tab PO 04/16/23 07/24/23 Unknown History D2-magnesium ox 200 mg-200 unit-25 mg tablet cholecalciferol (vitamin D3) 50 50 mcg PO DAILY 04/16/23 07/24/23 Unknown History mcg (2,000 unit) capsule multivitamin 1 tab PO DAILY 04/16/23 07/24/23 Unknown History hydrochlorothiazide 50 mg tablet 50 mg PO DAILY 07/16/23 07/24/23 Unknown History Exam Airway Mallampati Class: II TM Dist: >3cm Neck ROM: Full Heart: rrr Lungs: cta Assessment and Plan Assessment Anesthesia Assessment: Anesthesia Plan Discussed Final Anesthetic Review Family History of Problems with Anesthesia: No History of Problems with Anesthesia: No NPO: Yes ASA Class: III Final Preanesthetic Review: No Changes in Pt Med Stat, Meds/Allgs Chart Reviewed, Consent Obtained/Reviewed and Anes Risks/Benef Reviewed Patient Risk: Intermediate Procedure Risk: Low Anesthetic Plan Anesthetic Plan: GA Disposition: Standard PACU
[2023-08-08] VITALS (8 sets, daily range): BP systolic 98–121; BP diastolic 35–74; PULSE 60–72; RESP 16–18; TEMP 36.2; O2SAT 96–98
--- NOTE | 2023-08-08 07:56 | MHC.SHP ---
Pre-Procedural Eval Section A Date of Service: 08/08/23 Section B Chief Complaint: Umbilical hernia without obstruction or gangrene Details of Present Illness: HAS FAT CONTAINING UMB HERNIA Relevant Family History (Specify if Yes): No Relevant Social History: None Present Medications: see Short Stay Collaborative assessment Medical History: Significant History ( obesity, hyperlipidemia, anxiety, obstructive sleep apnea) Allergies: Allergies Allergy/AdvReac Type Severity Reaction Status Date / Time No Known Allergies Allergy Verified 07/23/23 16:05 Review of Systems Sugical H&P ROS: Negative: Constitution, Cardiovascular, Respiratory, Neurological, Psychiatric, Hem-Onc, Allergic/Immunologic, Gastrointestinal, Genitourinary, Musculoskeletal, Integumentary, Endocrine and Eyes/Ears/Nose/Throat Exam Surgical H&P Exam: Normal: HEENT, Normal: Heart, Normal: Lungs, Normal: Extremities, Normal: Skin and Normal: Neurological and Significant Findings: Abdomen ( umbilical hernia) Plan Diagnosis/Plan: Unchanged I have reviewed the history and physical and performed a pertinent physical examination on my patient. No changes have occurred unless specified. Time Spent With Patient Time: Total time managing care of this patient today ____ minutes.
[2023-08-08 08:02] LABS: UPreg QC Valid YES; Urine Pregnancy NEGATIVE (NEGATIVE)
[2023-08-08] MEDS: Lactated Ringers 1,000 ML 100 ML IVCONT (08:24)
--- NOTE | 2023-08-08 09:46 | P.OP_ITS ---
Operative Note Operative Note Date of Service: 08/08/23 Narrative: Preop diagnosis: Umbilical hernia Postop diagnosis: Umbilical hernia, with large amounts of omental fat, chronically incarcerated Procedure: Repair of chronically incarcerated umbilical hernia, with mesh Surgeon: Berhane Huntley MD it administrative assistant: JACLYN Lr The patient is a 43-year-old female with note of a large umbilical hernia. Her CAT scan showed a fat containing hernia in the umbilicus. She understood the technique of repair with mesh. She was aware of the risks, benefits, and alternatives She was brought to the operating room. She was placed supine under general anesthesia via laryngeal mask airway initially. The abdomen was prepped and draped in the usual sterile fashion. A surgical time-out was done. The patient received cefazolin 2 g IV preoperatively I infiltrated the planned line of incision with lidocaine 1%. I made an incision on the skin overlying the hernia in the infraumbilical margin using a blade 15. This was carried down with electrocautery through the full-thickness of the skin and part of the subcutaneous layer until I was able to visualize the hernia. This contained omental fat. I sharply dissected the hernia off of the rest of the surrounding subcutaneous layer. The patient was obese so we had to go through large amounts of subcutaneous fat before I was able to reach the fascia. I continued to gently dissect the hernia contents off of the rest of the surrounding skin is layer using electrocautery and Metzenbaum scissors until I was able to visualize the hernia defect. The hernia defect was relatively low compared to the large amounts of omental fat so I had to a lot of ligation of some of the omentum and transection with Polysorb 2-0 ties. There was note of more omental fat stuck in the sac inferiorly so we had to carefully release this as well until the entire hernia contents were completely free. I was then able to reduce this. I cleared the margins surrounding the defect. There is no evidence of any adherent bowel. The fascial defect measured about 3.5 cm in diameter. I therefore used a medium-sized Ventralex mesh. Was flattened under the fascia. This was secured to the fascial edge on both sides with Prolene 2-0 sutures using the Prolene straps of the mesh. The Prolene straps were then trimmed. I then closed the fascia with a running Maxon 1 stitch Hemostasis had been observed prior to fascial closure The subcutaneous layer was reapposed with Polysorb 3-0 simple interrupted sutures. Skin closure was achieved with pulse of 4-0 subcuticular running sutures. The any the area of the incision was infiltrated with Marcaine 0.5% for postop KASIA. Dressings were applied. The procedure was then completed. I was informed by the anesthesiologist in during the procedure that she felt that the patient had vomited and may have aspirated so the patient was intubated at that point. Patient was eventually extubated in the operating room and transferred to the recovery room with stable vital signs. She will be monitored closely in the PACU prior to discharge.
== END 2023-08-08 11:43 | disposition home or self-care (01) ==
PROVIDERS: Anesthesiology; PCP Internal Medicine; Visit Provider Surgery
PROC: (CPT 49594; principal; 2023-08-08 09:00)
DX: K42.0 Umbilical hernia with obstruction, without gangrene (principal); I10 Essential (primary) hypertension; E78.5 Hyperlipidemia, unspecified; E66.01 Morbid (severe) obesity due to excess calories; Z68.41 Body mass index [BMI] 40.0-44.9, adult; G47.33 Obstructive sleep apnea (adult) (pediatric); Z79.899 Other long term (current) drug therapy; Z87.891 Personal history of nicotine dependence
CPT/HCPCS: 49594; 81025; 88302; 88304; C1781; J0131; J0330; J0690; J1100; J1885; J2250; J2405; J3010

== ENCOUNTER → 2023-08-08 07:31 | Outpatient (BNV) | payer OTHER, SELFPAY | PROVIDERS: PCP Internal Medicine; Visit Provider Surgery | DX: K42.0 Umbilical hernia with obstruction, without gangrene (principal) | CPT/HCPCS: 49594 ==

== ENCOUNTER 2023-08-21 09:23 | Outpatient (AMB) | payer OTHER, SELFPAY ==
--- NOTE | 2023-08-21 09:25 | A.OFFVIS_ITS ---
Intake Vital Signs 08/21/23 09:31 Weight 229 lb BP 94/52 L Blood Pressure Location Rt brachial Position Sitting Pulse 54 Intake Visit Reasons: S/P umbilical hernia w/mesh Intake Note: This patient presents for a post-op assessment status post umbilical hernia repair with mesh. Patient c/o; reports no changes or complaints at this time pertaining to surgery. Customer Service Technician Required: No Accompanied by: Self / Same As Patient Allergies No Known Allergies Allergy (Verified 08/21/23 09:32) HPI S/P umbilical hernia w/mesh HPI Details She underwent repair of an umbilical hernia with Ventralex mesh last 08/08/2023. She tolerated procedure well. She currently denies significant complaints. [facility] Medical History Colon cancer screening Morbid obesity Gestational diabetes Granuloma annulare Scalp psoriasis Rosacea History of vitamin D deficiency Generalized anxiety disorder Hypercholesterolemia Obstructive sleep apnea YOHAN (obstructive sleep apnea) Somnolence, daytime Snoring Morbid obesity Surgical History History of umbilical hernia repair Previous section (~08/08/23) Family History Sister Substance use disorder Bipolar disorder Father Alcoholism Bipolar disorder Mother Mental health disorder Hodgkins lymphoma Alcoholism Sister No problems noted. Maternal Grandmother CAD (coronary artery disease) Social History Housing: House Patient Tobacco Use Status: Former Tobacco user e-Cigarette/Vaping Use: Never Used service: No Current occupational status: employed Cognitive needs: No Hearing needs: No Vision needs: Yes Review of Systems Const Denies chills and Denies fever(s) Card Denies chest pain Resp Denies cough GI Denies abdominal pain Physical Exam Const General: comfortable and no acute distress Resp Effort & Inspection: normal respiratory effort GI Other: Incision clean and dry, healing well, repair intact Palpation (GI): Soft to palpation, not firm and nontender Assessment & Plan Assessment & Plan (1) Umbilical hernia: Code(s): K42.9 - Umbilical hernia without obstruction or gangrene Plan: Status post repair with Ventralex mesh. She is doing well. The incision is well healed. The repair site is intact. I advised her to avoid any lifting of more than 20 lb for at least 2 more weeks. She can follow up on a p.r.n. basis. Coding Level of Care Code Global (15502) Diagnoses Umbilical hernia K42.9
[2023-08-21 09:31] VITALS: BP 94/52; PULSE 54
== END 2023-08-21 09:44 | disposition home or self-care (01) ==
PROVIDERS: PCP Internal Medicine; Visit Provider Surgery
DX: K42.9 Umbilical hernia without obstruction or gangrene (principal); Z09 Encounter for follow-up examination after completed treatment for conditions other than malignant neoplasm
CPT/HCPCS: 99212

== ENCOUNTER → 2023-08-21 09:23 | Outpatient (BNVA) | payer OTHER, SELFPAY | PROVIDERS: PCP Internal Medicine; Visit Provider Surgery ==

== ENCOUNTER 2023-09-24 13:33 | Outpatient (AMB) | payer OTHER, SELFPAY ==
--- NOTE | 2023-09-24 13:36 | MHC.OFFVIS ---
Intake Vital Signs 09/24/23 13:37 Height 5 ft 2 in Weight 227 lb BMI 41.5 BP 102/62 Blood Pressure Location Lt brachial Position Sitting Pulse 66 Pulse Source Pulse Oximeter Pulse Oximetry (%) 98 Oxygen Delivery Method Room Air Intake Visit Reasons: Obstructive sleep apnea Intake Note: pt is here for follow up and states she is doing well with c-pap. pt did have positive covid in July. Orthopedics Pediatric Physician Required: No Allergies No Known Allergies Allergy (Verified 09/24/23 14:13) Medication List - Last Reconciled 09/24/23 by Lenny Kothari MD atorvastatin 10 mg PO DAILY bisacodyl (Dulcolax (bisacodyl)) 10 mg (2 x 5 mg) PO ONCE 1 day calcium cit mal-vit D2-mag ox 200-200-25 mg-unit-mg tabs PO cholecalciferol (vitamin D3) 50 mcg PO DAILY docusate sodium (Colace) 100 mg PO BID hydrochlorothiazide 50 mg PO DAILY ibuprofen 600 mg PO Q6H PRN multivitamin 1 tab PO DAILY oxycodone-acetaminophen 5-325 mg (Percocet) 1 tab PO Q4-6H PRN polyethylene glycol 3350 (Miralax) 238 grams PO ONCE sertraline 50 mg PO DAILY Do you need a note to return to daycare/school/sports/work: No HPI Obstructive sleep apnea HPI Details This 43 years old female is here for 6 months follow-up for her sleep apnea. She uses CPAP very regularly every night and sleeps good. In fact she cannot go to sleep without the mask except on rare nights when she falls asleep without putting on the mask. Her weight is relatively stable but compared to her initial weight she has lost more than 30 lb of weight. She sleeps good, wakes up refreshed and feels energetic during the daytime. COUNT INCLUDES THE [facility] Medical History Colon cancer screening Morbid obesity Gestational diabetes Granuloma annulare Scalp psoriasis Rosacea History of vitamin D deficiency Generalized anxiety disorder Hypercholesterolemia Obstructive sleep apnea YOHAN (obstructive sleep apnea) Somnolence, daytime Snoring Morbid obesity Surgical History History of umbilical hernia repair Previous section (~08/08/23) Family History Sister Substance use disorder Bipolar disorder Father Alcoholism Bipolar disorder Mother Mental health disorder Hodgkins lymphoma Alcoholism Sister No problems noted. Maternal Grandmother CAD (coronary artery disease) Social History Housing: House Patient Tobacco Use Status: Former Tobacco user e-Cigarette/Vaping Use: Never Used service: No Current occupational status: employed Cognitive needs: No Hearing needs: No Vision needs: Yes Review of Systems Const All systems reviewed & are unremarkable except as noted in HPI and below Eyes Reports no additional complaints ENT Reports no additional complaints Card Denies chest pain, Denies irregular heart rhythm and Denies leg edema Resp Reports no additional complaints GI Reports heartburn (Off and on) Reports no additional complaints Musc Reports no additional complaints Skin/Breast Reports system reviewed and no additional complaints, except as documented Neuro Reports no additional complaints Psych Reports depression (Being treated with medication) Endo Reports no additional complaints and Reports other (Borderline type 2 diabetes mellitus, and hyperlipidemia) Aller/Immun Reports no additional complaints Physical Exam Vital Signs: Last Vital Signs Pulse 66 09/24/23 13:37 BP 102/62 09/24/23 13:37 Pulse Ox 98 09/24/23 13:37 Oxygen Delivery Method Room Air 09/24/23 13:37 BMI result Body Mass Index 41.5 She has lost significant amount of weight, but still has long way to go Const General: healthy appearing, comfortable, no acute distress, alert and awake Orientation/consciousness: patient oriented x3 HEENT Head: Yes normal to inspection General nose exam: No nasal polyps present and No nasal discharge present Face and sinus: Yes sinuses nontender Mouth: oropharynx normal Throat: Yes posterior oropharynx normal Eyes General: appearance normal, both eyes and all related structures Neck Neck: Yes normal visual inspection, Yes no lymphadenopathy, Yes trachea midline, Yes no JVD and Yes other (Neck is short and obese and circumference 16-1/2 inch) Thyroid: Thyroid normal Chest Chest palpation & inspection: normal inspection of the chest, normal palpation of entire chest wall and no tenderness Resp Other: Chest wall is thick, percussion note not perceptible, breath sounds are equal on both sides and no wheezes or rhonchi are heard. Cardio Palpation: normal PMI Rate: regular rate Rhythm: regular rhythm Heart sounds: no gallops and no murmurs Peripheral pulses: Peripheral pulses 2+ throughout GI Palpation (GI): Soft to palpation, nontender, No hepatosplenomegaly present, no masses and Other GI palpation findings present (Abdomen is obese and protuberant) Auscultation: normal bowel sounds Back/Spine/Pelvis Thoracic/Lumbar Spine: thoracic and lumbar spine normal to inspection Skin General skin exam: no rashes or lesions noted Neuro General: patient oriented x3 and no focal motor deficits Cranial nerves: Yes CN's II-XII intact bilaterally Extrem General: Yes normal to inspection, Yes no clubbing, cyanosis or edema and Yes no calf tenderness Psych Appearance: grossly normal and well kempt Speech and movement: Normal speech and movement present Results Reviewed Results Reviewed: COMPLIANCE REPORT FOR THE LAST 30 NIGHTS IS REVIEWED. SHE HAS USED 29/30 NIGHTS, 97%. AVERAGE USE PER NIGHT 6 HOURS 8 MINUTE. PRESSURE USED IS MOSTLY 9.2 CM. THERE IS NO SIGNIFICANT AIR LEAK. RESIDUAL AHI 2.4 Assessment & Plan Assessment & Plan (1) Morbid obesity: Comment: PATIENT HAS LONG-STANDING HISTORY OF OBESITY. SHE IS FULLY AWARE AND CONSCIOUS OF THIS PROBLEM. She has full command over her diet and also tries to do regular exercise. She has successfully lost about 30 LBs in the last 6 months. Commended for doing a great job and she will continue to lose more weight. Code(s): E66.01 - Morbid (severe) obesity due to excess calories Plan: ABOVE (2) YOHAN (obstructive sleep apnea): Comment: PATIENT IS A CONFIRMED CASE OF MODERATELY SEVERE OBSTRUCTIVE SLEEP APNEA. SHE IS VERY COMPLIANT IN USING THE CPAP EVERY NIGHT. SHE IS VERY HAPPY, SLEEP IS MUCH IMPROVED. AND SHE IS MORE ENERGETIC. NO ISSUES WITH THE MASK OR CPAP DEVICE AT THIS TIME. Code(s): G47.33 - Obstructive sleep apnea (adult) (pediatric) Plan: COMMENDED FOR HER GOOD COMPLIANCE. AND ENCOURAGED TO KEEP ON USING THE CPAP EVERY NIGHT Coding Level of Care Code Est Pt Level 3 (38697) Diagnoses Morbid obesity E66.01 YOHAN (obstructive sleep apnea) G47.33
[2023-09-24 13:37] VITALS: BP 102/62; PULSE 66; O2SAT 98; BMI 41.5
== END 2023-09-24 14:06 | disposition home or self-care (01) ==
PROVIDERS: PCP Internal Medicine; Visit Provider Internal Medicine
DX: E66.01 Morbid (severe) obesity due to excess calories (principal); G47.33 Obstructive sleep apnea (adult) (pediatric)
CPT/HCPCS: 99213

== ENCOUNTER → 2023-09-24 13:33 | Outpatient (BNVA) | payer OTHER, SELFPAY | PROVIDERS: PCP Internal Medicine; Visit Provider Internal Medicine ==

== ENCOUNTER 2023-10-01 09:23 | Outpatient (AMB) | payer OTHER, SELFPAY ==
--- NOTE | 2023-10-01 09:38 | A.OFFVIS_ITS ---
Intake Vital Signs 10/01/23 09:43 Height 5 ft 2 in Weight 225 lb BMI 41.1 BP 101/57 L Blood Pressure Location Lt brachial Position Sitting Pulse 67 Intake Visit Reasons: Colonoscopy screening Intake Note: This patient presents for an assessment for colonoscopy screening. Patient c/o; occasional constipation. Reports healing well from Hernia repair 2m ago. Has noticed BM look healthier since hernia surgery. Feels less bloated. But thinks has internal hemorrhoids. Taking OTC colace. 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 Allergies No Known Allergies Allergy (Verified 10/01/23 09:41) Medication List - Last Reconciled 10/01/23 by Berhane Huntley MD atorvastatin 10 mg PO DAILY bisacodyl (Dulcolax (bisacodyl)) 10 mg (2 x 5 mg) PO ONCE 1 day calcium cit mal-vit D2-mag ox 200-200-25 mg-unit-mg tabs PO cholecalciferol (vitamin D3) 50 mcg PO DAILY docusate sodium (Colace) 100 mg PO BID hydrochlorothiazide 50 mg PO DAILY ibuprofen 600 mg PO Q6H PRN multivitamin 1 tab PO DAILY polyethylene glycol 3350 (Miralax) 238 grams PO ONCE sertraline 50 mg PO DAILY HPI Colonoscopy screening HPI Details 43-year-old female here to schedule for screening colonoscopy. She has never had any colonoscopy in the past. She denies any significant GI complaints although she admits to occasional being constipated She denies any family history of colon cancer. She had repair of an incisional hernia mesh 2 months ago. PFSH Medical History Colon cancer screening Morbid obesity Gestational diabetes Granuloma annulare Scalp psoriasis Rosacea History of vitamin D deficiency Generalized anxiety disorder Hypercholesterolemia Obstructive sleep apnea YOHAN (obstructive sleep apnea) Somnolence, daytime Snoring Morbid obesity Surgical History History of umbilical hernia repair Previous section (~08/08/23) Family History Sister Substance use disorder Bipolar disorder Father Alcoholism Bipolar disorder Mother Mental health disorder Hodgkins lymphoma Alcoholism Sister No problems noted. Maternal Grandmother CAD (coronary artery disease) Social History Housing: House Patient Tobacco Use Status: Former Tobacco user e-Cigarette/Vaping Use: Never Used service: No Current occupational status: employed Cognitive needs: No Hearing needs: No Vision needs: Yes Review of Systems Const Denies chills and Denies fever(s) Card Denies chest pain, Denies dyspnea and Denies dyspnea on exertion Resp Denies cough, Denies dyspnea and Denies dyspnea on exertion GI Denies hematochezia and Denies change in bowel habits Denies hematuria Musc Denies back pain and Denies limited range of motion Neuro Denies focal weakness and Denies convulsions Psych Denies depression and Denies mood swings Physical Exam Vital Signs: Last Vital Signs Pulse 67 10/01/23 09:43 BP 101/57 L 10/01/23 09:43 BMI result Body Mass Index 41.1 Const Other: Obese General: comfortable and no acute distress Orientation/consciousness: patient oriented x3 Neck Neck: Yes no lymphadenopathy Resp Auscultation: clear to auscultation bilaterally Cardio Rhythm: regular rhythm GI Other: Has large pannus Palpation (GI): Soft to palpation, nontender and no guarding Neuro General: patient oriented x3 Assessment & Plan Assessment & Plan (1) Colon cancer screening: Code(s): Z12.11 - Encounter for screening for malignant neoplasm of colon Plan: I reviewed with her the technique of colonoscopy for screening. I explained the risks including but not limited to bleeding and perforation, as well as the benefits and alternatives. She understands and wants to proceed. Coding Level of Care Code Est Pt Level 3 (33463) Diagnoses Colon cancer screening Z12.11
[2023-10-01 09:43] VITALS: BP 101/57; PULSE 67; BMI 41.1
== END 2023-10-01 09:58 | disposition home or self-care (01) ==
PROVIDERS: PCP Internal Medicine; Visit Provider Surgery
DX: Z12.11 Encounter for screening for malignant neoplasm of colon (principal)
CPT/HCPCS: 99213

== ENCOUNTER → 2023-10-01 09:23 | Outpatient (BNVA) | payer OTHER, SELFPAY | PROVIDERS: PCP Internal Medicine; Visit Provider Surgery | DX: K42.9 Umbilical hernia without obstruction or gangrene (principal) ==

== ENCOUNTER 2023-11-07 10:00 | Day surgery (SDC) | payer BC, SELFPAY ==
[2023-11-05 07:20] VITALS: BMI 41.1
--- NOTE | 2023-11-05 12:02 | P.CONAN_ITS ---
Documented by User: Anitha Leonard NP 11/05/23 12:02 HPI - Anesthesia Eval Consult details Narrative: 43yo F for Colonoscopy with possible Polypectomy PMFSH Active Problems Active Problems: All Active Problems (Updated 09/24/23 @ 14:17 by Lenny Kothari MD) Umbilical hernia (Acute) Obstructive sleep apnea (Acute) Hypercholesterolemia (Acute) Generalized anxiety disorder (Acute) Granuloma annulare (Acute) Gestational diabetes (Acute) Morbid obesity (Acute) Colon cancer screening (Acute) YOHAN (obstructive sleep apnea) (Acute) Morbid obesity (Acute) Past Medical History Medical History Colon cancer screening Morbid obesity Gestational diabetes Granuloma annulare Scalp psoriasis Rosacea History of vitamin D deficiency Generalized anxiety disorder Hypercholesterolemia Obstructive sleep apnea YOHAN (obstructive sleep apnea) Somnolence, daytime Snoring Morbid obesity Family History Family History Sister Substance use disorder Bipolar disorder Father Alcoholism Bipolar disorder Mother Mental health disorder Hodgkins lymphoma Alcoholism Sister No problems noted. Maternal Grandmother CAD (coronary artery disease) Family history of problems with anesthesia: No Surgical History Surgical History History of umbilical hernia repair Previous section (~08/08/23) History of Problems with Anesthesia: No Social History Social History Housing: House Patient Tobacco Use Status: Former Tobacco user e-Cigarette/Vaping Use: Never Used service: No Current occupational status: employed Cognitive needs: No Hearing needs: No Vision needs: Yes Meds Allergies Allergy/AdvReac Type Severity Reaction Status Date / Time No Known Allergies Allergy Verified 10/01/23 09:41 Home Medications Medication Instructions Recorded Confirmed Last Taken Type calcium citrate mal.-vit tab PO 04/16/23 10/01/23 Unknown History D2-magnesium ox 200 mg-200 unit-25 mg tablet cholecalciferol (vitamin D3) 50 50 mcg PO DAILY 04/16/23 10/01/23 Unknown History mcg (2,000 unit) capsule multivitamin 1 tab PO DAILY 04/16/23 10/01/23 Unknown History hydrochlorothiazide 50 mg tablet 50 mg PO DAILY 07/16/23 10/01/23 Unknown History Exam Height,Weight and Vital Signs: Height 5 ft 2 in Weight 102.058 kg Assessment and Plan Assessment Anesthesia Assessment: Chart Reviewed Final Anesthetic Review Family History of Problems with Anesthesia: No History of Problems with Anesthesia: No Documented by User: Amanda Tejada MD 11/07/23 10:36 [facility] Active Problems Active Problems: All Active Problems (Updated 11/07/23 @ 10:14 by Amanda Tejada MD) Umbilical hernia (Acute) Obstructive sleep apnea (Acute) Hypercholesterolemia (Acute) Generalized anxiety disorder (Acute) Granuloma annulare (Acute) H/o Gestational diabetes (Acute) Morbid obesity (Acute) BMI 41.6 Colon cancer screening (Acute) YOHAN (obstructive sleep apnea) (Acute) H/o regurgitation of bilious fluid during surgery in July 2023. Denies DM (only gestational). Denies use of any weight loss drugs or drugs which would slow down gastric emptying Past Medical History Medical History Colon cancer screening Morbid obesity Gestational diabetes Granuloma annulare Scalp psoriasis Rosacea History of vitamin D deficiency Generalized anxiety disorder Hypercholesterolemia Obstructive sleep apnea YOHAN (obstructive sleep apnea) Somnolence, daytime Snoring Morbid obesity Family History Family History Sister Substance use disorder Bipolar disorder Father Alcoholism Bipolar disorder Mother Mental health disorder Hodgkins lymphoma Alcoholism Sister No problems noted. Maternal Grandmother CAD (coronary artery disease) Surgical History Surgical History History of umbilical hernia repair Previous section (~08/08/23) History of Problems with Anesthesia: Yes (Bilious fluid out of LMA during hernia surgery 08/11. Airway secured with ETT) Social History Social History Housing: House Patient Tobacco Use Status: Former Tobacco user e-Cigarette/Vaping Use: Never Used service: No Current occupational status: employed Cognitive needs: No Hearing needs: No Vision needs: Yes Meds Allergies Allergy/AdvReac Type Severity Reaction Status Date / Time No Known Allergies Allergy Verified 10/01/23 09:41 Home Medications Medication Instructions Recorded Confirmed Last Taken Type calcium citrate mal.-vit tab PO 04/16/23 10/01/23 Unknown History D2-magnesium ox 200 mg-200 unit-25 mg tablet cholecalciferol (vitamin D3) 50 50 mcg PO DAILY 04/16/23 10/01/23 Unknown History mcg (2,000 unit) capsule multivitamin 1 tab PO DAILY 04/16/23 10/01/23 Unknown History hydrochlorothiazide 50 mg tablet 50 mg PO DAILY 07/16/23 10/01/23 Unknown History Exam Height,Weight and Vital Signs: Height 5 ft 2 in Weight 102.058 kg Vital Signs Temp Pulse Resp BP Pulse Ox O2 Del Method 11/07/23 10:14 98 F 72 20 126/59 L 96 Room Air Lab Results 11/07/23 Range/Units 10:05 Urine Test NEGATIVE (NEGATIVE) Airway Mallampati Class: II TM Dist: >3cm Neck ROM: Full Loose/Missing/Broken Teeth: No (Denies broken, loose, missing teeth) Heart: RRR Lungs: CTAB Assessment and Plan Assessment Anesthesia Assessment: Anesthesia Plan Discussed Final Anesthetic Review History of Problems with Anesthesia: Yes (Bilious fluid out of LMA during hernia surgery 08/11. Airway secured with ETT) NPO: Yes ASA Class: III Final Preanesthetic Review: No Changes in Pt Med Stat, Meds/Allgs Chart R eviewed, Consent Obtained/Reviewed and Anes Risks/Benef Reviewed Patient Risk: Intermediate Procedure Risk: Low Assessment/Block/Sedation in SS: Assess/Block/Sedation-SS Anesthetic Plan Anesthetic Plan: MAC: and TIVA Disposition: Standard PACU
--- NOTE | 2023-11-07 10:02 | MHC.SHP ---
Pre-Procedural Eval Section A Date of Service: 11/07/23 Section B Chief Complaint: Encounter for screening for malignant neoplasm of Details of Present Illness: Patient is here for her 1st screening colonoscopy. Denies GI complaints Relevant Family History (Specify if Yes): No Relevant Social History: None Present Medications: see Short Stay Collaborative assessment Medical History: Significant History (Hyperlipidemia, sleep apnea, morbid obesity, anxiety) Allergies: Allergies Allergy/AdvReac Type Severity Reaction Status Date / Time No Known Allergies Allergy Verified 10/01/23 09:41 Review of Systems Sugical H&P ROS: Negative: Constitution, Cardiovascular, Respiratory, Neurological, Psychiatric, Hem-Onc, Allergic/Immunologic, Gastrointestinal, Genitourinary, Musculoskeletal, Integumentary, Endocrine and Eyes/Ears/Nose/Throat Exam Surgical H&P Exam: Normal: HEENT, Normal: Heart, Normal: Lungs, Normal: Extremities, Normal: Abdomen, Normal: Skin and Normal: Neurological Plan Diagnosis/Plan: Unchanged I have reviewed the history and physical and performed a pertinent physical examination on my patient. No changes have occurred unless specified. Time Spent With Patient Time: Total time managing care of this patient today ____ minutes.
[2023-11-07 10:14] VITALS: BP 126/59; PULSE 72; RESP 20; TEMP 36.6; O2SAT 96
[2023-11-07 10:17] VITALS: BMI 41.6
[2023-11-07 10:24] LABS: UPreg QC Valid YES; Urine Pregnancy NEGATIVE (NEGATIVE)
[2023-11-07] MEDS: Lactated Ringers 1,000 ML 100 ML IVCONT (10:41)
--- NOTE | 2023-11-07 11:26 | W.PM.OPN ---
Operative Note Operative Note Date of Service: 11/07/23 Narrative: Preop diagnosis: Colon cancer screening Postop diagnosis: Small polyp about 6 mm, level 15 cm Procedure: Colonoscopy with polypectomy using hot snare x1 Surgeon: Berhane Huntley MD The patient is a 43-year-old female here for screening colonoscopy. She understood the technique of the procedure and was aware of the risks, benefits, and alternatives The patient was brought to the operating room and placed in left lateral decubitus position under monitored anesthesia care. A surgical time-out was done. A full digital rectal exam was done and this did not reveal any significant anal lesions. The tip of the Olympus colonoscope was gently introduced through the anal orifice advanced with insufflation all the way to the cecum. The cecum was intubated. The cecum was identified by visualization of the ileocecal valve as well as the appendiceal orifice. The cecal mucosa was unremarkable. The scope was gradually withdrawn with careful examination of the entire colonic mucosa being done with scope withdrawal. The patient had adequate bowel prep so it was unlikely that any lesion may have been missed. There was note of a small polyp, about 6-7 mm at level 15 cm. This was removed using hot snare. The rectum was reached and there were no lesions seen. The anal canal was unremarkable. The scope was then withdrawn completely with desufflation The patient tolerated the procedure well. There were no immediate complications. Depending on the path report, her next colonoscopy may be in the next 10 years.
[2023-11-07 11:36] VITALS: BP 90/72; PULSE 63; RESP 20; TEMP 36.5; O2SAT 100
[2023-11-07 11:51] VITALS: BP 141/88; PULSE 57; RESP 20; TEMP 36.5; O2SAT 100
== END 2023-11-07 12:47 | disposition home or self-care (01) ==
PROVIDERS: Nurse Practitioner; PCP Internal Medicine; Visit Provider Surgery
PROC: 0DBE8ZZ Excision of Large Intestine, Via Natural or Artificial Opening Endoscopic (ICD-10-PCS; CPT 45385; principal; 2023-11-07 11:10)
DX: Z12.11 Encounter for screening for malignant neoplasm of colon (principal); D12.7 Benign neoplasm of rectosigmoid junction; K59.00 Constipation, unspecified; E66.01 Morbid (severe) obesity due to excess calories; Z68.41 Body mass index [BMI] 40.0-44.9, adult; E78.00 Pure hypercholesterolemia, unspecified; G47.33 Obstructive sleep apnea (adult) (pediatric); Z79.1 Long term (current) use of non-steroidal anti-inflammatories (NSAID); Z79.899 Other long term (current) drug therapy; Z98.890 Other specified postprocedural states; Z87.891 Personal history of nicotine dependence
CPT/HCPCS: 45385; 81025; 88305; J1596; J2371; J2704; J2765

== ENCOUNTER → 2023-11-07 10:00 | Outpatient (BNV) | payer BC, SELFPAY | PROVIDERS: PCP Internal Medicine; Visit Provider Surgery | DX: Z12.11 Encounter for screening for malignant neoplasm of colon (principal); K63.5 Polyp of colon | CPT/HCPCS: 45385 ==

== ENCOUNTER 2023-11-20 10:22 | Outpatient (AMB) | payer BC, SELFPAY ==
--- NOTE | 2023-11-20 10:23 | MHC.OFFVIS ---
Intake Vital Signs 11/20/23 10:30 Height 5 ft 2 in Weight 223 lb BMI 40.8 BP 101/53 L Blood Pressure Location Rt brachial Position Sitting Pulse 60 Intake Visit Reasons: S/P colonoscopy Intake Note: This patient presents for a follow-up assessment status post colonoscopy. Patient c/o; reports no complaints at this time. Cardio Clinician Required: No Accompanied by: Self / Same As Patient Allergies No Known Allergies Allergy (Verified 11/20/23 10:30) Medication List - Last Reconciled 11/20/23 by Berhane Huntley MD atorvastatin 10 mg PO DAILY calcium cit mal-vit D2-mag ox 200-200-25 mg-unit-mg tabs PO cholecalciferol (vitamin D3) 50 mcg PO DAILY docusate sodium (Colace) 100 mg PO BID hydrochlorothiazide 50 mg PO DAILY ibuprofen 600 mg PO Q6H PRN multivitamin 1 tab PO DAILY sertraline 50 mg PO DAILY HPI S/P colonoscopy HPI Details She underwent colonoscopy last November 07, 2023 for screening. She tolerated procedure well. She currently denies significant complaints. [facility] Medical History (Updated 11/20/23 @ 10:30 by Berhane Huntley MD) Adenoma of colon Colon cancer screening Morbid obesity Gestational diabetes Granuloma annulare Scalp psoriasis Rosacea History of vitamin D deficiency Generalized anxiety disorder Hypercholesterolemia Obstructive sleep apnea YOHAN (obstructive sleep apnea) Somnolence, daytime Snoring Morbid obesity Surgical History History of umbilical hernia repair Previous section (~08/08/23) Family History Sister Substance use disorder Bipolar disorder Father Alcoholism Bipolar disorder Mother Mental health disorder Hodgkins lymphoma Alcoholism Sister No problems noted. Maternal Grandmother CAD (coronary artery disease) Social History Housing: House Patient Tobacco Use Status: Former Tobacco user e-Cigarette/Vaping Use: Never Used service: No Current occupational status: employed Cognitive needs: No Hearing needs: No Vision needs: Yes Review of Systems Const Denies chills and Denies fever(s) Card Denies chest pain, Denies dyspnea and Denies dyspnea on exertion Resp Denies cough, Denies dyspnea and Denies dyspnea on exertion GI Denies hematochezia and Denies change in bowel habits Denies hematuria Musc Denies back pain and Denies limited range of motion Neuro Denies focal weakness and Denies convulsions Psych Denies depression and Denies mood swings Physical Exam Const Other: Obese General: comfortable and no acute distress Resp Effort & Inspection: normal respiratory effort GI Palpation (GI): Soft to palpation, not firm and nontender Assessment & Plan Assessment & Plan (1) Adenoma of colon: Code(s): D12.6 - Benign neoplasm of colon, unspecified Plan: Status post colonoscopy last November 07. I removed 1 small polyp from level 15 cm. This was a tubular adenoma. I told her that I would recommend that her next colonoscopy may be in the next 10 years as she does not present with high risks. Coding Level of Care Code Est Pt Level 2 (20982) Diagnoses Adenoma of colon D12.6
[2023-11-20 10:30] VITALS: BP 101/53; PULSE 60; BMI 40.8
== END 2023-11-20 10:36 | disposition home or self-care (01) ==
PROVIDERS: PCP Internal Medicine; Visit Provider Surgery
DX: D12.6 Benign neoplasm of colon, unspecified (principal)
CPT/HCPCS: 99212

== ENCOUNTER → 2023-11-20 10:22 | Outpatient (BNVA) | payer BC, SELFPAY | PROVIDERS: PCP Internal Medicine; Visit Provider Surgery ==

== ENCOUNTER 2024-03-31 09:44 | Outpatient (AMB) | payer BC, SELFPAY ==
[2024-03-31 09:49] VITALS: BP 102/62; PULSE 77; O2SAT 96; BMI 39.7
--- NOTE | 2024-03-31 09:49 | MHC.OFFVIS ---
Vital Signs 03/31/24 09:49 Height 5 ft 2 in Weight 217 lb 2.485 oz BMI 39.7 BP 102/62 Blood Pressure Location Lt brachial Position Sitting Pulse 77 Pulse Source Pulse Oximeter Pulse Oximetry (%) 96 Oxygen Delivery Method Room Air Intake Visit Reasons: Obstructive sleep apnea Intake Note: pt is here for follow up and states she is doing well and is down 5 lbs!! Allergies No Known Allergies Allergy (Verified 03/31/24 10:02) Medication List - Last Reconciled 03/31/24 by Lenny Kothari MD atorvastatin 10 mg PO DAILY calcium cit mal-vit D2-mag ox 200-200-25 mg-unit-mg tabs PO cholecalciferol (vitamin D3) 50 mcg PO DAILY docusate sodium (Colace) 100 mg PO BID hydrochlorothiazide 50 mg PO DAILY ibuprofen 600 mg PO Q6H PRN multivitamin 1 tab PO DAILY Do you need a note to return to daycare/school/sports/work: No HPI HPI Obstructive sleep apnea: Details: THIS 43 YEARS OLD FEMALE, IS HERE FOR FOLLOW-UP OF HER SLEEP APNEA. SHE IS GROSSLY OBESE BUT HAS LOST ABOUT 5 LB OF WEIGHT IN THE LAST FEW MONTHS. USES CPAP EVERY NIGHT , HOWEVER KEEPS IT ON ONLY FOR A FEW HOURS AND THEN DURING HER SLEEP THE CPAP MASK COMES OFF. ON SOME NIGHTS SHE GOES TO SLEEP IN THE COUCH AND DOES NOT HAVE CHANCE TO PUT ON THE CPAP MASK. OVERALL SHE IS HAPPY AND IN GOOD SPIRITS. SHE IS TELLING , THAT HER NEW PARTNER TELLS HER THAT SHE DOES NOT SNORE AT ALL . PATIENT USED TO BE ON SERTRALINE FOR CHRONIC DEPRESSION BUT HAS COME OFF THAT SLOWLY. [facility] Medical History Adenoma of colon Colon cancer screening Morbid obesity Gestational diabetes Granuloma annulare Scalp psoriasis Rosacea History of vitamin D deficiency Generalized anxiety disorder Hypercholesterolemia Obstructive sleep apnea YOHAN (obstructive sleep apnea) Somnolence, daytime Snoring Morbid obesity Surgical History History of umbilical hernia repair Previous section (~08/08/23) Family History Sister Substance use disorder Bipolar disorder Father Alcoholism Bipolar disorder Mother Mental health disorder Hodgkins lymphoma Alcoholism Sister No problems noted. Maternal Grandmother CAD (coronary artery disease) Social History Housing: House Patient Tobacco Use Status: Former Tobacco user e-Cigarette/Vaping Use: Never Used service: No Current occupational status: employed Cognitive needs: No Hearing needs: No Vision needs: Yes Review of Systems Const All systems reviewed & are unremarkable except as noted in HPI and below Eyes Reports no additional complaints ENT Reports no additional complaints Card Denies chest pain, Denies irregular heart rhythm and Denies leg edema Resp Reports no additional complaints GI Reports heartburn (Off and on) Reports no additional complaints Musc Reports no additional complaints Skin/Breast Reports system reviewed and no additional complaints, except as documented Neuro Reports no additional complaints Psych Reports depression (Being treated with medication) Endo Reports no additional complaints and Reports other (Borderline type 2 diabetes mellitus, and hyperlipidemia) Aller/Immun Reports no additional complaints Physical Exam Vital Signs: Last Vital Signs Pulse 77 03/31/24 09:49 BP 102/62 03/31/24 09:49 Pulse Ox 96 03/31/24 09:49 Oxygen Delivery Method Room Air 03/31/24 09:49 BMI result Body Mass Index 39.7 She has lost significant amount of weight, but still has long way to go Const General: healthy appearing, comfortable, no acute distress, alert and awake Orientation/consciousness: patient oriented x3 HEENT Head: Yes normal to inspection General nose exam: No nasal polyps present and No nasal discharge present Face and sinus: Yes sinuses nontender Mouth: oropharynx normal Throat: Yes posterior oropharynx normal Eyes General: appearance normal, both eyes and all related structures Neck Neck: Yes normal visual inspection, Yes no lymphadenopathy, Yes trachea midline, Yes no JVD and Yes other (Neck is short and obese and circumference 16-1/2 inch) Thyroid: Thyroid normal Chest Chest palpation & inspection: normal inspection of the chest, normal palpation of entire chest wall and no tenderness Resp Other: Chest wall is thick, percussion note not perceptible, breath sounds are equal on both sides and no wheezes or rhonchi are heard. Cardio Palpation: normal PMI Rate: regular rate Rhythm: regular rhythm Heart sounds: no gallops and no murmurs Peripheral pulses: Peripheral pulses 2+ throughout GI Palpation (GI): Soft to palpation, nontender, No hepatosplenomegaly present, no masses and Other GI palpation findings present (Abdomen is obese and protuberant) Auscultation: normal bowel sounds Back/Spine/Pelvis Thoracic/Lumbar Spine: thoracic and lumbar spine normal to inspection Skin General skin exam: no rashes or lesions noted Neuro General: patient oriented x3 and no focal motor deficits Cranial nerves: Yes CN's II-XII intact bilaterally Extrem General: Yes normal to inspection, Yes no clubbing, cyanosis or edema and Yes no calf tenderness Psych Appearance: grossly normal and well kempt Speech and movement: Normal speech and movement present Results Reviewed Results Reviewed: COMPLIANCE REPORT FOR THE LAST 30 NIGHTS IS REVIEWED. SHE HAS USED 24/30 NIGHTS, 80%. AVERAGE USE IT PER NIGHT HAS BEEN 2 HOURS 28 MINUTES WHICH IS SUBOPTIMAL. RESIDUAL AHI IS ONLY 0.3 Assessment & Plan Assessment & Plan (1) Morbid obesity: Comment: PATIENT HAS LONG-STANDING HISTORY OF OBESITY. SHE IS FULLY AWARE AND CONSCIOUS OF THIS PROBLEM. She has full command over her diet and also tries to do regular exercise. Currently she is following weight watchers program. She continues to lose weight slowly. Code(s): E66.01 - Morbid (severe) obesity due to excess calories Category: Medical Plan: Commended for losing more weight, continue to be regular in weight watchers program. (2) YOHAN (obstructive sleep apnea): Comment: PATIENT IS A CONFIRMED CASE OF MODERATELY SEVERE OBSTRUCTIVE SLEEP APNEA. SHE IS VERY COMPLIANT IN USING THE CPAP EVERY NIGHT BUT LATELY SHE HAS MISSED USING IT A FEW NIGHTS EVERY MONTH. SHE IS VERY HAPPY, SLEEP IS MUCH IMPROVED, AND THERE IS NO SNORING. Code(s): G47.33 - Obstructive sleep apnea (adult) (pediatric) Category: Medical Plan: DISCUSS THE COMPLIANCE REPORT WITH HER. STRESS THAT SHE HAS TO USE THE CPAP EVERY NIGHT, AND MORE THAN 4 HOURS EVERY NIGHT. SHE IS GOING TO TRY DOING HER BEST. Coding Level of Care Code Est Pt Level 3 (15544) Diagnoses Morbid obesity E66.01 YOHAN (obstructive sleep apnea) G47.33
== END 2024-03-31 10:10 | disposition home or self-care (01) ==
PROVIDERS: PCP Internal Medicine; Visit Provider Internal Medicine
DX: E66.01 Morbid (severe) obesity due to excess calories (principal); G47.33 Obstructive sleep apnea (adult) (pediatric)
CPT/HCPCS: 99213

== ENCOUNTER → 2024-03-31 09:44 | Outpatient (BNVA) | payer BC, SELFPAY | PROVIDERS: PCP Internal Medicine; Visit Provider Internal Medicine ==

== ENCOUNTER 2024-08-04 09:39 | Outpatient (AMB) | payer BC, SELFPAY ==
[2024-08-04 09:50] VITALS: BP 114/70; PULSE 66; O2SAT 99; BMI 38.3
--- NOTE | 2024-08-04 09:50 | MHC.OFFVIS ---
Vital Signs 08/04/24 09:50 Height 5 ft 2 in Weight 209 lb 7.026 oz BMI 38.3 BP 114/70 Blood Pressure Location Lt brachial Position Sitting Pulse 66 Pulse Source Pulse Oximeter Pulse Oximetry (%) 99 Oxygen Delivery Method Room Air Intake Visit Reasons: Obstructive sleep apnea Intake Note: pt is here for follow up and states she is struggling with the cpap usage, but trying but is going through stress in her life, she is doing her best. pt has had whooping cough for the past month but getting better. Senior Sales Representative Required: No Allergies No Known Allergies Allergy (Verified 08/04/24 10:09) Do you need a note to return to daycare/school/sports/work: No HPI HPI Obstructive sleep apnea: Details: THIS 44 YEARS OLD FEMALE WITH GROSS OBESITY, OBSTRUCTIVE SLEEP APNEA, COMES FOR FOLLOW-UP AFTER 4 MONTHS. SHE CLAIMS THAT SHE DOES USE THE CPAP EVERY NIGHT, ON SOME NIGHTS SHE MAY NOT USE UP TO 4 HOURS, BUT MOST OF THE NIGHTS HE USES MORE THAN 4 HOURS AND SLEEPS BETTER. SHE HAS ONLY MINIMAL DEGREE OF NASAL CONGESTION. SHE IS TRYING TO LOSE WEIGHT AND HAS SUCCESSFULLY LOST ABOUT 7-8 LB SINCE OUR LAST VISIT. LIFE IS A BIT STRESSFUL FOR HER SHE HAS FROM HER PARTNER SINCE ABOUT 4 MONTHS AGO. [facility] Medical History Adenoma of colon Colon cancer screening Morbid obesity Gestational diabetes Granuloma annulare Scalp psoriasis Rosacea History of vitamin D deficiency Generalized anxiety disorder Hypercholesterolemia Obstructive sleep apnea YOHAN (obstructive sleep apnea) Somnolence, daytime Snoring Morbid obesity Surgical History History of umbilical hernia repair Previous section (~08/08/23) Family History Sister Substance use disorder Bipolar disorder Father Alcoholism Bipolar disorder Mother Mental health disorder Hodgkins lymphoma Alcoholism Sister No problems noted. Maternal Grandmother CAD (coronary artery disease) Social History Housing: House Patient Tobacco Use Status: Former Tobacco user e-Cigarette/Vaping Use: Never Used service: No Current occupational status: employed Cognitive needs: No Hearing needs: No Vision needs: Yes Review of Systems Const All systems reviewed & are unremarkable except as noted in HPI and below Eyes Reports no additional complaints ENT Reports no additional complaints Card Denies chest pain, Denies irregular heart rhythm and Denies leg edema Resp Reports no additional complaints GI Reports heartburn (Off and on) Reports no additional complaints Musc Reports no additional complaints Skin/Breast Reports system reviewed and no additional complaints, except as documented Neuro Reports no additional complaints Psych Reports depression (Being treated with medication) Endo Reports no additional complaints and Reports other (Borderline type 2 diabetes mellitus, and hyperlipidemia) Aller/Immun Reports no additional complaints Physical Exam Vital Signs: Last Vital Signs Pulse 66 08/04/24 09:50 BP 114/70 08/04/24 09:50 Pulse Ox 99 08/04/24 09:50 Oxygen Delivery Method Room Air 08/04/24 09:50 BMI result Body Mass Index 38.3 She has lost significant amount of weight, but still has long way to go Const General: healthy appearing, comfortable, no acute distress, alert and awake Orientation/consciousness: patient oriented x3 HEENT Head: Yes normal to inspection General nose exam: No nasal polyps present and No nasal discharge present Face and sinus: Yes sinuses nontender Mouth: oropharynx normal Throat: Yes posterior oropharynx normal Eyes General: appearance normal, both eyes and all related structures Neck Neck: Yes normal visual inspection, Yes no lymphadenopathy, Yes trachea midline, Yes no JVD and Yes other (Neck is short and obese and circumference 16-1/2 inch) Thyroid: Thyroid normal Chest Chest palpation & inspection: normal inspection of the chest, normal palpation of entire chest wall and no tenderness Resp Other: Chest wall is thick, percussion note not perceptible, breath sounds are equal on both sides and no wheezes or rhonchi are heard. Cardio Palpation: normal PMI Rate: regular rate Rhythm: regular rhythm Heart sounds: no gallops and no murmurs Peripheral pulses: Peripheral pulses 2+ throughout GI Palpation (GI): Soft to palpation, nontender, No hepatosplenomegaly present, no masses and Other GI palpation findings present (Abdomen is obese and protuberant) Auscultation: normal bowel sounds Back/Spine/Pelvis Thoracic/Lumbar Spine: thoracic and lumbar spine normal to inspection Skin General skin exam: no rashes or lesions noted Neuro General: patient oriented x3 and no focal motor deficits Cranial nerves: Yes CN's II-XII intact bilaterally Extrem General: Yes normal to inspection, Yes no clubbing, cyanosis or edema and Yes no calf tenderness Psych Appearance: grossly normal and well kempt Speech and movement: Normal speech and movement present Results Reviewed Results Reviewed: COMPLIANCE REPORT FOR THE LAST 31 NIGHTS IS REVIEWED. THE RECORDED REPORT SHOWS THAT SHE WAS USING DAILY UP UNTIL 929 AND AFTER THAT THE RECORDING SHOWS THAT SHE HAS NOT USED. . THE PATIENT SAY IS THAT IS NOT TRUE SHE USES EVERY NIGHT BUT PERHAPS THERE HAS BEEN NO TRANSMISSION OF THE DATA. IN FACT SHE SLEEPS BETTER AND SHE IS NOT ABLE TO SLEEP WITHOUT THE CPAP. HER PROBLEM WAS THAT SHE COULD NOT MEET THE 4 HOURS LIMIT BUT NOW IN THE LAST 4 MONTHS SHE IS USING FOR 4 HOURS OR MORE EVERY NIGHT. Assessment & Plan Assessment & Plan (1) Morbid obesity: Comment: PATIENT HAS LONG-STANDING HISTORY OF OBESITY. SHE IS FULLY AWARE AND CONSCIOUS OF THIS PROBLEM. She has full command over her diet and also tries to do regular exercise. Currently she is following weight watchers program. She continues to lose weight slowly. Has lost about 9 lb since last visit. Code(s): E66.01 - Morbid (severe) obesity due to excess calories Category: Medical Plan: Commended for losing weight and encouraged to keep on following the diet closely and lose more weight. (2) YOHAN (obstructive sleep apnea): Comment: PATIENT IS A CONFIRMED CASE OF MODERATELY SEVERE OBSTRUCTIVE SLEEP APNEA. SHE IS VERY COMPLIANT IN USING THE CPAP EVERY NIGHT . THE COMPLIANCE REPORT DOES NOT COINCIDE WITH HER VERBAL STATEMENT. THERE IS SOME ISSUE IN TRANSMISSION. SHE IS VERY HAPPY, SLEEP IS MUCH IMPROVED, AND THERE IS NO SNORING. THE CURRENT FULLFACE MASK IS COMFORTABLE. Code(s): G47.33 - Obstructive sleep apnea (adult) (pediatric) Category: Medical Plan: SHE HAS FULL MOTIVATION TO KEEP ON USING THE CPAP MASK. WE WILL CHECK WITH DME SUPPLIER AND DISCUSS ABOUT THE TRANSMISSION ISSUE. ALSO WILL SEND ORDER FOR NEW SUPPLIES. Coding Level of Care Code Est Pt Level 3 (72005) Diagnoses Morbid obesity E66.01 YOHAN (obstructive sleep apnea) G47.33
== END 2024-08-04 10:11 | disposition home or self-care (01) ==
PROVIDERS: PCP Internal Medicine; Visit Provider Internal Medicine
DX: E66.01 Morbid (severe) obesity due to excess calories (principal); G47.33 Obstructive sleep apnea (adult) (pediatric)
CPT/HCPCS: 99213

== ENCOUNTER → 2024-08-04 09:39 | Outpatient (BNVA) | payer BC, SELFPAY | PROVIDERS: PCP Internal Medicine; Visit Provider Internal Medicine ==

== ENCOUNTER 2024-09-13 08:05 | Outpatient (AMB) | payer BC, SELFPAY ==
--- NOTE | 2024-09-13 08:07 | MHC.PC.OV ---
Vital Signs 09/13/24 08:08 Height 5 ft 2 in Weight 214 lb BMI 39.1 BP 100/70 Blood Pressure Location Lt brachial Position Sitting Pulse 73 Pulse Source Pulse Oximeter Pulse Oximetry (%) 98 Oxygen Delivery Method Room Air Intake Visit Reasons: PE Intake Note: Pt is here today for her PE: Last colonoscopy 11/07/23, mammogram 03/2024, papsmear 11/19/23 Allergies No Known Allergies Allergy (Verified 09/13/24 09:10) Medication List - Last Reconciled 09/13/24 by Shauna Murphy MD atorvastatin 10 mg PO DAILY calcium cit mal-vit D2-mag ox 200-200-25 mg-unit-mg tabs PO cholecalciferol (vitamin D3) 50 mcg PO DAILY ibuprofen 600 mg PO Q6H PRN multivitamin 1 tab PO DAILY Tobacco use date assessed: 09/13/24 Dental Screening Dental Screen Date: 09/13/24 Did you have a dental visit in the last 12 months?: Yes Did you have a dental problem in the last 6 months where you did not have access to dental care?: No Was dental information given to patient?: Patient has dentist HPI PE HPI Details 44-year-old female presenting today for physical exam.. She has a known history of obstructive sleep apnea, currently on CPAP, followed by Dr. Kothari She has history of hypercholesterolemia, currently on atorvastatin and has been compliant with adherence to healthy eating habits. She also has a history of generalized anxiety disorder, from which she is now off medication after gradual withdrawal and has not had any recurrences of anxiety attacks. She reports weight loss after undergoing umbilical hernia repair and hemorrhoidectomy conducted by Dr. Huntley, which relieved previous pain impeding her physical activity. She sees [facility] in [place] for her routine Pap and pelvic exam, currently up-to-date, done earlier this year with negative findings. Screening mammogram was also ordered by them 03/26/2024 with benign findings. Had a screening colonoscopy done Dr. Huntley this year's well with removal of a tubular adenoma polyp, repeat colonoscopy due again in 2028. 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, currently asymptomatic [facility] Medical History Adenoma of colon Colon cancer screening Morbid obesity Gestational diabetes Granuloma annulare Scalp psoriasis Rosacea History of vitamin D deficiency Generalized anxiety disorder Hypercholesterolemia Obstructive sleep apnea YOHAN (obstructive sleep apnea) Somnolence, daytime Snoring Surgical History History of umbilical hernia repair Previous section (~08/08/23) Family History Sister Substance use disorder Bipolar disorder Father Alcoholism Bipolar disorder Mother Mental health disorder Hodgkins lymphoma Alcoholism Sister No problems noted. Maternal Grandmother CAD (coronary artery disease) Social History Housing: House Patient Tobacco Use Status: Former Tobacco user e-Cigarette/Vaping Use: Never Used service: No Current occupational status: employed Cognitive needs: No Hearing needs: No Vision needs: Yes Female Reproductive History Menstrual Date of last pap smear: 11/19/23 Date of Mammogram: 03/26/24 Other: sees Ninoska Queen NP Questionnaire PHQ-9 Over the last 2 weeks, how often have you been bothered by any of the following problems? 1. Little interest or pleasure in doing things: not at all 2. Feeling down, depressed, or hopeless: not at all 3. Trouble falling or staying asleep, or sleeping too much: not at all 4. Feeling tired or having little energy: not at all 5. Poor appetite or overeating: not at all 6. Feeling bad about yourself - or that you are a failure or have let yourself or your family down: not at all 7. Trouble concentrating on things, such as reading the newspaper or watching television: not at all 8. Moving or speaking so slowly that other people could have noticed. Or the opposite - being so fidgety or restless that you have been moving around a lot more than usual: not at all 9. Thoughts that you would be better off or of hurting yourself in some way: not at all Total score: 0 Depression Screening Interpretation: Negative Depression Screening Done: Yes 23561 - PHQ-9 Billing: Yes Source: Developed by Drs. Pj Moreno, Samantha Morris, Deon Fulton and colleagues, with an educational indira from [employer]. Thrive Questionnaire Date Thrive assessed: 09/13/24 I am a: Patient What is your living situation today?: I have a steady place to live Within the past 12 months, did the food you bought not last and you didn't have the money to get more?: Never true Within the past 12 months, did you worry whether your food would run out before you got money to buy more?: Never true Do you have trouble paying for medicines?: No Do you have trouble getting transportation to medical appointments?: No Do you have trouble paying your heating and electricity bill?: Yes Do you have trouble taking care of your child, family member or friend?: No Do you have trouble with day-to-day activities such as bathing, preparing meals, shopping, managing finances, etc.?: No Are you currently unemployed and looking for a job?: No Are you interested in more education?: I choose not to answer this question Please select the resources that you would like help with: None Currently or been in a relationship where the following occur: No concerns reported THRIVE Score: 1 AUDIT C Alcohol Use Questionnaire (AUDIT-C) 1. How often do you have a drink containing alcohol?: Monthly or less 2. How many drinks containing alcohol do you have on a typical day when you are drinking?: 3 or 4 3. How often do you have six or more drinks on one occasion?: Never Total Score: 2 SUSAN-7 AMB Questionnaire SUSAN-7 Date SUSAN - 7 assessed: 09/13/24 Feeling nervous, anxious, or on edge: 0 = Not at all Not being able to stop or control worryin = Not at all Worrying too much about different things: 0 = Not at all Trouble relaxin = Not at all Being so restless that it is hard to sit still: 0 = Not at all Becoming easily annoyed or irritable: 0 = Not at all Feeling afraid as if something awful might happen: 0 = Not at all Total SUSAN-7 score (0-4 normal; 5-9 mild; 10-14 moderate; 15-21 severe): 0 Source: Developed by Drs. Pj Moreno, Deon Bustos and colleagues, with an educational indira from [employer]. SUSAN-7 Assessment Billing SUSAN-7 Assessment Tool: SUSAN-7 Assessment 69809 Review of Systems Const Denies body aches, Denies fatigue, Denies fever(s), Denies headache(s) and Denies weakness Eyes Details: [facility] Denies change in vision ENT Denies dizziness, Denies headache(s), Denies nasal congestion, Denies nasal discharge and Denies sore throat Card Denies chest pain, Denies lightheadedness, Denies palpitations and Denies dyspnea Resp Denies chest congestion, Denies cough, Denies dyspnea and Denies wheezing GI Denies abdominal pain, Denies change in bowel habits and Denies heartburn Denies hematuria, Denies urinary frequency, Denies dysuria and Denies urinary urgency Musc Reports no additional complaints Skin/Breast Denies breast pain, Denies breast mass, Denies lesions and Denies rash Neuro Denies dizziness, Denies headache(s) and Denies weakness Psych Reports no additional complaints Endo Denies fatigue, Denies polydipsia, Denies polyuria and Denies palpitations Oscar/Lymph Denies easy bruising Aller/Immun Denies seasonal rhinorrhea and Denies wheezing Physical exam (Primary Care) Vital Signs: Last Vital Signs Pulse 73 09/13/24 08:08 BP 100/70 09/13/24 08:08 Pulse Ox 98 09/13/24 08:08 Oxygen Delivery Method Room Air 09/13/24 08:08 BMI result Body Mass Index 39.1 Tobacco/Smoking Status: Tobacco use Status Tobacco use date assessed 09/13/24 09/13/24 08:09 Patient Tobacco Use Status Former Tobacco user 09/13/24 08:08 e-Cigarette/Vaping Use Never Used 09/13/24 08:08 PHQ-9: PHQ-9 Score PHQ-9: Total score 0 09/13/24 09:30 Depression Screening Interpretation: Negative Thrive Assessment: Date of Thrive Assessment Date Thrive assessed 09/13/24 09/13/24 08:13 Currently or been in a relationship where the following occur: No concerns reported Advance Care Planning discussion: Completed/Scanned Date of discussion: 09/13/24 Who was present: patient Forms completed: Health Care Proxy Time spent: 16-45 minutes Actual minutes spent: 2 Const General: no acute distress and alert Orientation/consciousness: patient oriented x3 HENMT Head: Yes normocephalic Ears: external ears normal, TM's normal bilaterally and EAC's normal General nose exam: Normal external nose present Face and sinus: Yes face symmetric Mouth: Normal oral and palatal mucosa present, oropharynx normal and moist mucous membranes Eyes General: appearance normal, both eyes and all related structures Conjunctivae: conjunctivae normal Sclerae: sclerae normal Pupils: Equal, round and reactive pupils present Neck Neck: Yes full ROM, Yes no lymphadenopathy and Yes supple Thyroid: Thyroid normal Resp Effort & Inspection: normal respiratory effort and able to speak in complete sentences Auscultation: clear to auscultation bilaterally Cardio Rate: regular rate Rhythm: regular rhythm Heart sounds: S1 normal heart sound present and S2 normal heart sound present GI Palpation (GI): Soft to palpation, nontender and no guarding Auscultation: normal bowel sounds General: Yes no CVA tenderness Back/Spine/Pelvis Back: no CVA tenderness and No back tenderness Skin General skin exam: no rashes or lesions noted Neuro General: patient oriented x3, gait normal, moves all extremities, Normal light touch and pain sensation, no focal motor deficits and CN's II-XI intact bilaterally Cranial nerves: Yes Equal, round and reactive pupils present Cognition (Neuro): normal cognition Gait exam (Neuro): Normal gait present Motor exam (neuro): 5/5 motor strength present throughout Extrem General: Yes normal to inspection, Yes full ROM, Yes no joint enlargement, Yes no pedal edema and Yes normal gait Psych Appearance: grossly normal and well kempt Mental Status: mental status grossly normal Speech and movement: Normal speech and movement present Affect: normal affect Attitude: cooperative Thought process: Normal thought process present Thought content: Normal thought content present Coding Level of Care Code Est Pt Prev Care 40-64y(84657) Diagnoses Annual visit for general adult medical examination with abnormal findings Z00.01 Obstructive sleep apnea G47.33 Hypercholesterolemia E78.00 Granuloma annulare L92.0 Advanced directives, counseling/discussion Z71.89 Additional Codes SUSAN-7 Assessment Billing - SUSAN-7 Assessment Tool: SUSAN-7 Assessment 49642 ([id number]) PHQ-9 - 00276 - PHQ-9 Billing: Yes ([id number]) Vital Signs *Quality* - Advance Care Planning discussion: Completed/Scanned ([id number]) Vital Signs *Quality* - Time spent: 16-45 minutes ([id number]) Assessment & Plan Assessment & Plan (1) Annual visit for general adult medical examination with abnormal findings: Code(s): Z00.01 - Encounter for general adult medical examination with abnormal findings Plan: Will check appropriate labs. Recommended dental visit every 6 months and regular eye exams, at least every 2 years. Take adequate calcium in diet and vitamin-D 3 at 2000 IU per cap once a day, in addition to weight-bearing exercises to help maintain good muscle tone and weight control. Instructed to do self-breast exam, and up-to-date with her yearly mammogram, and cervical cancer screening, currently being followed at [facility] by Elizabeth Queen NP. Up-to-date with her screening colonoscopy, due again in 2028 due to removal of a tubular adenoma polyp. Advised to get her COVID booster and her yearly flu vaccine, declined to get vaccinated today. (2) Obstructive sleep apnea: Comment: previously seen by Dr. Kothari Code(s): G47.33 - Obstructive sleep apnea (adult) (pediatric) Category: Medical Plan: Followed by Dr. Kothari (3) Hypercholesterolemia: Code(s): E78.00 - Pure hypercholesterolemia, unspecified Category: Medical Plan: Fasting lipid panel ordered today, reinforced importance of adherence to healthy eating habits and regular exercise, continue with atorvastatin 10 mg daily (4) Granuloma annulare: Comment: Seen by Dr. Murphy Code(s): L92.0 - Granuloma annulare Category: Medical Plan: Followed by Dr. Murphy (5) Advanced directives, counseling/discussion: Code(s): Z71.89 - Other specified counseling Plan: Initiated the conversation about Advanced Directives. Advanced Directives help patients prepare for current and future decisions about their medical treatment and place of care. Discussed with patient that it is a process where a patients current condition and prognosis are reviewed, their wishes for information regarding their illness are elicited, and likely medical dilemmas are presented and options discussed. Healthcare proxy form completed today. The form can be amended as needed, reviewed yearly and make changes as needed Orders: Orders TSH reflex Free T4 09/13/24 E66.01 - Morbid (severe) obesity due to excess calories, E78.00 - Pure hypercholesterolemia, unspecified, G47.33 - Obstructive sleep apnea (adult) (pediatric), L92.0 - Granuloma annulare, O24.419 - Gestational diabetes mellitus in , unspecified control Lipid Panel 09/13/24 E66.01 - Morbid (severe) obesity due to excess calories, E78.00 - Pure hypercholesterolemia, unspecified, G47.33 - Obstructive sleep apnea (adult) (pediatric), L92.0 - Granuloma annulare, O24.419 - Gestational diabetes mellitus in , unspecified control Alanine Aminotransferase 09/13/24 E66.01 - Morbid (severe) obesity due to excess calories, E78.00 - Pure hypercholesterolemia, unspecified, G47.33 - Obstructive sleep apnea (adult) (pediatric), L92.0 - Granuloma annulare, O24.419 - Gestational diabetes mellitus in , unspecified control Aspartate Amino Transferase 09/13/24 E66.01 - Morbid (severe) obesity due to excess calories, E78.00 - Pure hypercholesterolemia, unspecified, G47.33 - Obstructive sleep apnea (adult) (pediatric), L92.0 - Granuloma annulare, O24.419 - Gestational diabetes mellitus in , unspecified control Basic Metabolic Panel Fasting 09/13/24 E66.01 - Morbid (severe) obesity due to excess calories, E78.00 - Pure hypercholesterolemia, unspecified, G47.33 - Obstructive sleep apnea (adult) (pediatric), L92.0 - Granuloma annulare, O24.419 - Gestational diabetes mellitus in , unspecified control Vitamin D 25-OH Total 09/13/24 E66.01 - Morbid (severe) obesity due to excess calories, E78.00 - Pure hypercholesterolemia, unspecified, G47.33 - Obstructive sleep apnea (adult) (pediatric), L92.0 - Granuloma annulare, O24.419 - Gestational diabetes mellitus in , unspecified control
[2024-09-13 08:08] VITALS: BP 100/70; PULSE 73; O2SAT 98; BMI 39.1
== END 2024-09-13 09:29 | disposition home or self-care (01) ==
PROVIDERS: PCP Internal Medicine; Visit Provider Internal Medicine
DX: Z00.01 Encounter for general adult medical examination with abnormal findings (principal); G47.33 Obstructive sleep apnea (adult) (pediatric); E78.00 Pure hypercholesterolemia, unspecified; L92.0 Granuloma annulare; Z71.89 Other specified counseling; Z00.00 Encounter for general adult medical examination without abnormal findings

== ENCOUNTER → 2024-09-13 08:05 | Outpatient (BNVA) | payer BC, SELFPAY | PROVIDERS: PCP Internal Medicine; Visit Provider Internal Medicine | DX: Z00.01 Encounter for general adult medical examination with abnormal findings (principal); G47.33 Obstructive sleep apnea (adult) (pediatric); E78.00 Pure hypercholesterolemia, unspecified; L92.0 Granuloma annulare; Z79.899 Other long term (current) drug therapy; Z99.89 Dependence on other enabling machines and devices; Z71.89 Other specified counseling | CPT/HCPCS: 96127 ==

== ENCOUNTER 2025-03-12 08:29 | Outpatient (REF) | payer BC, SELFPAY ==
[2025-03-12 11:42] LABS: Alanine Aminotransferase 13 U/L (0-31); Anion Gap 12 (12-20); Aspartate Amino Transferase 15 U/L (5-31); Blood Urea Nitrogen 13 mg/dL (9-16); Calcium 9.1 mg/dL (8.4-10.2); Carbon Dioxide 25 mmol/L (22-29); Chloride 105 mmol/L (96-108); Cholesterol 220 mg/dL (<200); Estimated Glomerular Filt Rate > 60; Glucose Fasting 86 mg/dL (60-99); HDL Cholesterol 55 mg/dL (>40); LDL Cholesterol Calculated 133 mg/dL (<100); Potassium 3.9 mmol/L (3.3-5.1); Sodium 138 mmol/L (135-145); Triglycerides 162 mg/dL (<150)
[2025-03-12 11:43] LABS: Vitamin D 25-OH Total 30.4 ng/mL (>30)
== END 2025-03-12 08:30 | disposition home or self-care (01) ==
LOC: HO.HMGCLDS 08:29
PROVIDERS: PCP Internal Medicine; Visit Provider Internal Medicine
DX: G47.33 Obstructive sleep apnea (adult) (pediatric) (principal); E78.00 Pure hypercholesterolemia, unspecified; L92.0 Granuloma annulare; O24.419 Gestational diabetes mellitus in pregnancy, unspecified control; E66.01 Morbid (severe) obesity due to excess calories
CPT/HCPCS: 36415; 80048; 80061; 82306; 84443; 84450; 84460

== ENCOUNTER 2025-03-15 08:10 | Outpatient (AMB) | payer BC, SELFPAY ==
[2025-03-15 08:20] VITALS: BP 100/70; PULSE 69; RESP 16; TEMP 36.7; O2SAT 99; BMI 38.0
--- NOTE | 2025-03-15 08:20 | A.OFFPC_ITS ---
Vital Signs 03/15/25 08:20 Height 5 ft 2 in Weight 208 lb BMI 38.0 BP 100/70 Blood Pressure Location Lt brachial Position Sitting Respiration 16 Pulse 69 Pulse Source Pulse Oximeter Temp 98.0 F Temp Source Oral Pulse Oximetry (%) 99 Oxygen Delivery Method Room Air Intake Visit Reasons: 6 month follow up Intake Note: Pt is here today for her 6mo. f/u Allergies No Known Allergies Allergy (Verified 03/15/25 08:51) Medication List - Last Reconciled 03/15/25 by Shauna Murphy MD No Known Home Meds Tobacco use date assessed: 03/15/25 Dental Screening Dental Screen Date: 03/15/25 Did you have a dental visit in the last 12 months?: Yes Did you have a dental problem in the last 6 months where you did not have access to dental care?: Yes Was dental information given to patient?: Patient has dentist HPI 6 month follow up HPI Details 44-year-old female presenting today for her follow-up visit. She has a known history of obstructive sleep apnea, currently on CPAP, followed by Dr. Kothari, has history of hypercholesterolemia, stopped taking her atorvastatin and has been following a healthy diet and engaging in regular exercise, has history of generalized anxiety disorder, resolved, not on any medication at present time, here today for follow-up. She has lost weight, feels better, less aching in joint reported. Had recent fasting labs done which showed normal electrolytes, renal function, normal fasting glucose, calcium, liver enzymes, and improving LDL cholesterol triglycerides and total cholesterol , and normal HDL cholesterol as compared to last check. Her TSH and vitamin-D level are both within normal limits. She is currently being followed at [facility] endocrine clinic for her elevated thyroglobulin antibody with a thyroid ultrasound showing multinodular goiter with scattered subcentimeter nodules which do not meet TI-RADS criteria for imaging follow-up She is up-to-date with her screening mammogram and cervical cancer screening both of which came back within normal limits. She had a screening colonoscopy done by Dr. Huntley in 2023 which showed presence of tubular adenoma, repeat screening colonoscopy due again in 2028. [facility] Medical History (Updated 03/15/25 @ 16:54 by Shauna Murphy MD) History of gestational diabetes History of anxiety disorder Multinodular goiter History of adenomatous polyp of colon Mixed dyslipidemia Morbid obesity Granuloma annulare Scalp psoriasis Rosacea History of vitamin D deficiency Hypercholesterolemia YOHAN (obstructive sleep apnea) Surgical History History of umbilical hernia repair Previous section (~08/08/23) Family History Sister Substance use disorder Bipolar disorder Father Alcoholism Bipolar disorder Mother Mental health disorder Hodgkins lymphoma Alcoholism Sister No problems noted. Maternal Grandmother CAD (coronary artery disease) Social History Housing: House Patient Tobacco Use Status: Former Tobacco user e-Cigarette/Vaping Use: Never Used service: No Current occupational status: employed Cognitive needs: No Hearing needs: No Vision needs: Yes Questionnaire PHQ-9 Over the last 2 weeks, how often have you been bothered by any of the following problems? 1. Little interest or pleasure in doing things: not at all 2. Feeling down, depressed, or hopeless: not at all 3. Trouble falling or staying asleep, or sleeping too much: not at all 4. Feeling tired or having little energy: not at all 5. Poor appetite or overeating: not at all 6. Feeling bad about yourself - or that you are a failure or have let yourself or your family down: not at all 7. Trouble concentrating on things, such as reading the newspaper or watching television: not at all 8. Moving or speaking so slowly that other people could have noticed. Or the opposite - being so fidgety or restless that you have been moving around a lot more than usual: not at all 9. Thoughts that you would be better off or of hurting yourself in some way: not at all Total score: 0 Depression Screening Interpretation: Negative Depression Screening Done: Yes 50537 - PHQ-9 Billing: Yes Source: Developed by Drs. Pj Moreno, Samantha Morris, Deon Fulton and colleagues, with an educational indira from [employer]. Thrive Questionnaire Date Thrive assessed: 03/15/25 I am a: Patient What is your living situation today?: I have a steady place to live Within the past 12 months, did the food you bought not last and you didn't have the money to get more?: Never true Within the past 12 months, did you worry whether your food would run out before you got money to buy more?: Never true Do you have trouble paying for medicines?: No Do you have trouble getting transportation to medical appointments?: No Do you have trouble paying your heating and electricity bill?: No Do you have trouble taking care of your child, family member or friend?: No Do you have trouble with day-to-day activities such as bathing, preparing meals, shopping, managing finances, etc.?: No Are you currently unemployed and looking for a job?: No Are you interested in more education?: Yes Please select the resources that you would like help with: None Currently or been in a relationship where the following occur: Controlled Financially and Controlled Emotionally THRIVE Score: 2 AUDIT C Alcohol Use Questionnaire (AUDIT-C) 1. How often do you have a drink containing alcohol?: 2-3 times a week 2. How many drinks containing alcohol do you have on a typical day when you are drinking?: 3 or 4 3. How often do you have six or more drinks on one occasion?: Never Total Score: 4 SUSAN-7 AMB Questionnaire SUSAN-7 Date SUSAN - 7 assessed: 03/15/25 Feeling nervous, anxious, or on edge: 0 = Not at all Not being able to stop or control worryin = Not at all Worrying too much about different things: 0 = Not at all Trouble relaxin = Not at all Being so restless that it is hard to sit still: 0 = Not at all Becoming easily annoyed or irritable: 0 = Not at all Feeling afraid as if something awful might happen: 0 = Not at all Total SUSAN-7 score (0-4 normal; 5-9 mild; 10-14 moderate; 15-21 severe): 0 Source: Developed by Drs. Pj Moreno, Samantha Morris, Deon Fulton and colleagues, with an educational indira from [employer]. SUSAN-7 Assessment Billing SUSAN-7 Assessment Tool: SUSAN-7 Assessment 08759 Review of Systems Const Denies body aches, Denies fatigue, Denies headache(s) and Denies weakness Eyes Details: goes to [facility] for routine eye exam Denies change in vision ENT Denies dizziness, Denies headache(s) and Denies nasal congestion Card Denies chest pain, Denies lightheadedness, Denies palpitations and Denies dyspnea Resp Denies chest congestion, Denies cough, Denies dyspnea and Denies wheezing GI Denies abdominal pain, Denies change in bowel habits and Denies heartburn Denies hematuria, Denies urinary frequency, Denies dysuria and Denies urinary urgency Musc Reports no additional complaints Skin/Breast Denies breast pain, Denies breast mass, Denies lesions and Denies rash Neuro Denies dizziness, Denies headache(s) and Denies weakness Psych Reports no additional complaints Endo Denies fatigue, Denies polydipsia, Denies polyuria and Denies palpitations Oscar/Lymph Denies easy bruising Aller/Immun Denies seasonal rhinorrhea and Denies wheezing Physical exam (Primary Care) Vital Signs: Last Vital Signs Temp 98.0 F 03/15/25 08:20 Pulse 69 03/15/25 08:20 Resp 16 03/15/25 08:20 BP 100/70 03/15/25 08:20 Pulse Ox 99 03/15/25 08:20 Oxygen Delivery Method Room Air 03/15/25 08:20 BMI result Body Mass Index 38.0 Tobacco/Smoking Status: Tobacco use Status Tobacco use date assessed 03/15/25 03/15/25 08:22 Patient Tobacco Use Status Former Tobacco user 03/15/25 08:22 e-Cigarette/Vaping Use Never Used 03/15/25 08:22 PHQ-9: PHQ-9 Score PHQ-9: Total score 0 03/15/25 16:43 Depression Screening Interpretation: Negative Thrive Assessment: Date of Thrive Assessment Date Thrive assessed 03/15/25 03/15/25 08:22 Currently or been in a relationship where the following occur: Controlled Financially and Controlled Emotionally Const General: no acute distress and alert Orientation/consciousness: patient oriented x3 HENMT Head: Yes normocephalic Ears: external ears normal, TM's normal bilaterally and EAC's normal General nose exam: Normal external nose present Face and sinus: Yes face symmetric Mouth: Normal oral and palatal mucosa present, oropharynx normal and moist mucous membranes Eyes General: appearance normal, both eyes and all related structures Conjunctivae: conjunctivae normal Sclerae: sclerae normal Pupils: Equal, round and reactive pupils present Neck Neck: Yes full ROM, Yes no lymphadenopathy and Yes supple Thyroid: Thyroid normal Resp Effort & Inspection: normal respiratory effort and able to speak in complete sentences Auscultation: clear to auscultation bilaterally Cardio Rate: regular rate Rhythm: regular rhythm Heart sounds: S1 normal heart sound present and S2 normal heart sound present GI Palpation (GI): Soft to palpation, nontender and no guarding Auscultation: normal bowel sounds General: Yes no CVA tenderness Back/Spine/Pelvis Back: no CVA tenderness and No back tenderness Skin General skin exam: no rashes or lesions noted Neuro General: patient oriented x3, gait normal, moves all extremities, Normal light touch and pain sensation, no focal motor deficits and CN's II-XI intact bilaterally Cranial nerves: Yes Equal, round and reactive pupils present Cognition (Neuro): normal cognition Gait exam (Neuro): Normal gait present Motor exam (neuro): 5/5 motor strength present throughout Extrem General: Yes normal to inspection, Yes full ROM, Yes no joint enlargement, Yes no pedal edema and Yes normal gait Psych Appearance: grossly normal and well kempt Mental Status: mental status grossly normal Speech and movement: Normal speech and movement present Affect: normal affect Attitude: cooperative Thought process: Normal thought process present Thought content: Normal thought content present Results Reviewed Results Reviewed: RUN: 03/15/25 0851 PAGE 1 [facility] [address] [place] [id number] Cleaning Staff Supervisor: Juan C Watson M.D. Specimen Inquiry Name: Racheal Barrera Age/Sex: 44/F : 1980 Unit#: [id number] Attend Dr: Shauna Murphy MD Re03/12/25 Status: DEP REF Location: [facility] Disch: SPEC : [id number] BENY: 03/12/25 STATUS: COMP REQ : [id number] RECD: 03/12/[address] [facility] [address]: Shauna Murphy MD COMP: 03/12/25 ENTERED: 03/12/25 [facility] DR: ORDERED: Met Prof Fast, AST, ALT, Lipid Panel, Vitamin D 25-OH, TSH Rflx Test Result Flag Reference Sodium 138 135-145 mmol/L Potassium 3.9 3.3-5.1 mmol/L CL 105 96-108 mmol/L CO2 25 22-29 mmol/L Gap 12 12-20 BUN 13 9-16 mg/dL Creat 0.59 0.5-1.4 mg/dL eGFR > 60 Chronic Kidney Disease: Estimated GFR < 60 mL/min/1.73m2 Severe Kidney Disease: Estimated GFR < 15 mL/min/1.73m2 FBS 86 60-99 mg/dL CA 9.1 8.4-10.2 mg/dL AST (GOT) 15 5-31 U/L ALT (GPT) 13 0-31 U/L Triglyceride 162 H <150 mg/dL Desirable Triglyceride: less than 150 mg/dL Borderline High Triglyceride 150-199 mg/dL High Triglyceride: 200-499 mg/dL Very High Triglyceride: greater than or equal to 5OO mg/dL Cholesterol 220 H <200 mg/dL Desirable Cholesterol: less than 200 mg/dL Borderline High Cholesterol: 200-239 mg/dL High Cholesterol: greater than 239 mg/dL LDL Calculated 133 H <100 mg/dL Desirable LDL: less than 100 mg/dL Near Optimal/Above Optimal LDL: 110-129 mg/dL Borderline High LDL: 130-159 mg/dL High LDL: 160-189 mg/dL Very High LDL: greater than or equal to 190 mg/dL HDL 55 >40 mg/dL Desirable HDL: greater than 40 mg/dL Note: This HDL assay may give artificially low results in patients with liver disease. Vitamin D 25-OH 30.4 >30 ng/mL Health Based Reference Values* < 20 ng/mL Deficient 20-30 ng/mL Insufficient > 30 ng/mL Sufficient *Margaret STERLING. N Engl J Med. 2007;[id number]:266-280 There is no well-established upper level of normal vitamin D levels. Some laboratories use 50 ng/mL as an upper limit of normal. However, toxicity is patient-dependent and may occur at any level. Careful correlation with the patient's presentation is necessary and, if there is concern for vitamin D toxicity, treatment should be considered irrespective of the serum level. Care must be taken in interpreting Vitamin D results from different laboratories and methodologies. Published data demonstrated that results from patients undergoing hemodialysis may show a negative bias when tested with various automated 25-OH vitamin D assays when compared to LC-MS/MS. When testing samples from patients whose predominant form of Vitamin D is Vitamin D2, such as patients receiving Vitamin D2 supplementation, results that are subtherapeutic should be confirmed with another method such as LC-MS/MS. TSH 2.90 0.32-4.0 uIU/mL Coding Level of Care Code Est Pt Level 4 (32830) Complex EM visit Add On G2211 Diagnoses Morbid obesity E66.01 Multinodular goiter E04.2 History of adenomatous polyp of colon Z86.0101 Mixed dyslipidemia E78.2 Additional Codes SUSAN-7 Assessment Billing - SUSAN-7 Assessment Tool: SUSAN-7 Assessment 93798 ([id number]) PHQ-9 - 26487 - PHQ-9 Billing: Yes ([id number]) Assessment & Plan Assessment & Plan (1) Morbid obesity: Code(s): E66.01 - Morbid (severe) obesity due to excess calories Category: Medical Plan: Continue adherence to healthy eating habits and regular exercise. (2) Multinodular goiter: Comment: Currently being seen at [facility] endocrine clinic Code(s): E04.2 - Nontoxic multinodular goiter Category: Medical Plan: Currently followed at [facility] endocrine clinic, patient currently asymptomatic and euthyroid, has an appointment for follow-up with them 03/20/2025 (3) History of adenomatous polyp of colon: Comment: Seen on colonoscopy done by Dr. Huntley in 2023, repeat due again in 2028 Code(s): Z86.0101 - Personal history of adenomatous and serrated colon polyps Category: Medical Plan: Repeat colonoscopy due again in 2028 (4) Mixed dyslipidemia: Code(s): E78.2 - Mixed hyperlipidemia Category: Medical Plan: Improving lipid levels, continue adherence to healthy eating habits and regular exercise. Will repeat labs again in six-months Orders: Orders Vitamin D 25-OH Total 10/08/25 E66.01 - Morbid (severe) obesity due to excess calories, E78.2 - Mixed hyperlipidemia Basic Metabolic Panel Fasting 10/08/25 E66.01 - Morbid (severe) obesity due to excess calories, E78.2 - Mixed hyperlipidemia Lipid Panel 10/08/25 E66.01 - Morbid (severe) obesity due to excess calories, E78.2 - Mixed hyperlipidemia
== END 2025-03-15 09:25 | disposition home or self-care (01) ==
LOC: HO.HMCC 08:11
PROVIDERS: PCP Internal Medicine; Visit Provider Internal Medicine
DX: E78.2 Mixed hyperlipidemia (principal); E66.01 Morbid (severe) obesity due to excess calories; Z68.38 Body mass index [BMI] 38.0-38.9, adult; E04.2 Nontoxic multinodular goiter; Z86.0101 Personal history of adenomatous and serrated colon polyps

== ENCOUNTER → 2025-03-15 08:10 | Outpatient (BNVA) | payer BC, SELFPAY | PROVIDERS: PCP Internal Medicine; Visit Provider Internal Medicine | DX: E66.01 Morbid (severe) obesity due to excess calories (principal); G47.33 Obstructive sleep apnea (adult) (pediatric); E78.00 Pure hypercholesterolemia, unspecified; E04.2 Nontoxic multinodular goiter; E78.2 Mixed hyperlipidemia; Z86.0101 Personal history of adenomatous and serrated colon polyps; Z99.89 Dependence on other enabling machines and devices; Z68.38 Body mass index [BMI] 38.0-38.9, adult | CPT/HCPCS: 96127 ==